=== PATIENT | male | born 1935 | race Caucasian/White ===

== ENCOUNTER 2016-12-08 14:34 | Inpatient (IN) | payer MEDICARE, OTHER ==
--- NOTE | 2016-12-08 14:58 | PCM.HP ---
H&P History of Present Illness - General Date of Service: 12/08/16 Admit Problem/Dx: PNA Source of Information: Patient, Old records, Provider, RN notes reviewed History Limitations: Reports: No limitations - History of Present Illness Initial Comments - Free Text/Narative: This is an 81 yo elderly white male with past medical hx/p RAD and Hypogammaglobulinemia who comes in as a direct admit. He was seen initially from his PCP's clinic and was found to have left lower lobe pneumonia. Patient is known to me from previous admission with significant past medical hx/ o. He has a hx/o Reactive Airway Disease and has been admitted in the past for recurrent pneumonia. Patient reports worsening shortness of breath associated with brownish productive cough. He also admits to having subjective fever. He denies any joint or muscle aches. He is able to drink o r eat. He denies any chest pain, nausea or vomiting. Patient was referred to me as direct admit from Dr. Pérez's office. He is full code. - Related Data Allergies/Adverse Reactions: Allergies Allergy/AdvReac Type Severity Reaction Status Date / Time No Known Allergies Allergy Verified 10/14/15 15:00 Home Medications: Home Meds Tamsulosin [Flomax] 0.4 mg PO DAILY 11/18/13 [History] Apixaban [Eliquis] 5 mg PO BID 09/13/16 [History] Calcium/Magnesium/Zinc [Calcium & Magnesium plus Zinc] 1 tab PO DAILY 09/13/16 [ History] Docusate Sodium [Stool Softener] 750 mg PO BEDTIME 09/13/16 [History] Furosemide [Lasix] 20 mg PO DAILY 09/13/16 [History] Iron. 65 mg PO DAILY 09/13/16 [History] Losartan [Cozaar] 25 mg PO DAILY 09/13/16 [History] Pyridoxine HCl [Vitamin B-6] 100 mg PO DAILY 09/13/16 [History] Sertraline [Zoloft] 25 mg PO DAILY 09/13/16 [History] Past Medical History HEENT History: Reports: Hard of hearing, Impaired vision Cardiovascular History: Reports: High cholesterol, Hypertension, Pacemaker Other Cardiovascular History: superficial Respiratory History: Reports: Pneumonia, recurrent Other Respiratory History: reactive airway disease Other Gastrointestinal History: L inguinal hernia repair Genitourinary History: Reports: BPH Other Genitourinary History: BPH Other OB/BYN History: gynocomastia Musculoskeletal History: Reports: Arthritis Other Musculoskeletal History: Left hip Hematologic History: Reports: Blood transfusion(s) Other Hematologic History: hx of one transfusion Immunologic History: Reports: Immunosuppression Oncologic (Cancer) History: Reports: Leukemia Other Oncologic History: CLL spe 6 months of bedamustine about 3 months ago Other Dermatologic History: left infiltration from chemo drug - Infectious Disease History Infectious Disease History: Reports: Influenza - Past Surgical History Other HEENT Surgeries/Procedures: glasses and bilat TIMMONS Other Neurological Surgeries/Procedures: pt had 2-3 back surgery Other Musculoskeletal Surgeries/Procedures:: back surgery x 2, carpal tunnel Social & Family History - Family History Family Medical History: Noncontributory OBGYN: Reports: Musculoskeletal: Reports: Arthritis Psychiatric: Reports: Other (see below) Other Psychiatric Family History: Alzheimers Endocrine/Metabolic: Reports: Diabetes, type II - Tobacco Use Smoking Status *Q: Never Smoker Second Hand Smoke Exposure: No - Caffeine Use Caffeine Use: Reports: Coffee, Soda - Alcohol Use Days Per Week of Alcohol Use: 0 Number of Drinks Per Day: 0 Total Drinks Per Week: 0 - Recreational Drug Use Recreational Drug Use: No Drug Use in Last 12 Months: No - Living Situation & Occupation Living situation: Reports: other Occupation: retired H&P Review of Systems - Review of Systems: Review Of Systems: See Below General: Reports: fever, chills, malaise HEENT: Reports: no symptoms Pulmonary: Reports: Shortness of Breath, Cough, Sputum Cardiovascular: Denies: chest pain, palpitations, dyspnea on exertion Gastrointestinal: Denies: Abdominal pain, Nausea, Vomiting Genitourinary: Reports: no symptoms Musculoskeletal: Reports: no symptoms Skin: Denies: rash Psychiatric: Denies: depression, anxiety, hallucinations Neurological: Denies: Confusion, Difficulty Walking, Weakness Hematologic/Lymphatic: Reports: no symptoms Immunologic: Reports: no symptoms Exam - Exam Exam: See Below - Vital Signs Weight: 78.3 kg - Exam General: alert, oriented, cooperative, mild distress HEENT: Conjunctiva clear, EOMI, Hearing intact, Mucosa moist & pink, Nares patent, Normal nasal septum, Posterior pharynx clear, Pupils equal, Pupils reactive Neck: supple, trachea midline, 2+ carotid pulse wo bruit Lungs: Normal respiratory effort, Decreased breath sounds, Rhonchi Cardiovascular: regular rate, regular rhythm Abdomen: normal bowel sounds, soft. No: organomegaly (Male) Exam: Deferred Rectal (Males) Exam: Deferred Back Exam: normal inspection, decreased range of motion Extremities: normal inspection, normal pulses. No: clubbing, cyanosis, calf tenderness, edema Peripheral Pulses: 2+: posterior tibial (L), posterior tibial (R), dorsalis pedis (L), dorsalis pedis (R) Skin: warm, dry, intact Neuro Extensive - Mental Status: oriented x3, normal cognition, memory intact Neuro Extensive - Motor, Sensory, Reflexes: CN II-XII intact, normal gait Psychiatric: alert, normal affect, normal mood *Q Meaningful Use (ADM) - VTE *Q VTE Criteria *Q: - Stroke *Q Stroke Criteria *Q: - AMI *Q AMI Criteria *Q: Problem List Initiated/Reviewed/Updated: Yes Assessment/Plan Comment:: Assessment/Plan: Acute: PNA-LLL - Info obtained form PCP - No disc or imaging study available for review - Risk Factor: RAD and Immmuno-suppressed state - PSI score 132: Moderate Risk inpatient admission - Bronchodilators, IV Antibiotics: Azithromycin, Rocephin, Zosyn for pharmacy to dose, RT care, - Decongestant with Mucinex - Sputum Cx/Sx, Legionella, Mycoplasma, and Strep Ag - FV and IS q2 awake Leukoctycosis - 2/2 Above - WBC 11.2 with Bands 8.3 - Monitor Chronic: HTN HLD PAF on Eliquis BPH OA/DJD RAD Anemia CKD Stage 3 Depression Hypothyroidism Hx/o SSS S/p PPM CLL on Chemotherapy Hx/o ESWL for renal stones H/xo DVT Hypogammaglobulinemia Plan: Direct Admit to Med-Surge w/ Tele Routine AM Labs Resume Home Meds Probiotic BID Regular Diet PT/OT consult SW/CM for d./c planning Code status: 1
[2016-12-08] MEDS ORDERED: Docusate Sodium 100 MG Cap PO PRN (15:46)
[2016-12-08] MEDS ORDERED: Sodium Chloride 0.9% 10 ML Syringe FLUSH PRN (15:46)
[2016-12-08] MEDS ORDERED: Albuterol/Ipratropium 3.0-0.5 MG/3 ML Neb Soln NEB PRN (15:46)
[2016-12-08] MEDS ORDERED: Acetaminophen/HYDROcodone 325-5 MG Tab PO PRN (15:46)
[2016-12-08] MEDS ORDERED: Ondansetron 4 MG/2 ML SDV IV PRN (15:46)
[2016-12-08] MEDS ORDERED: HYDROmorphone 0.5 MG/0.5 ML Syringe IVPUSH PRN (15:46)
[2016-12-08] MEDS ORDERED: Bisacodyl 5 MG Tab PO PRN (15:46)
[2016-12-08] MEDS ORDERED: Polyethylene Glycol 3350 Powder 17 GM Packet PO PRN (15:46)
[2016-12-08] MEDS ORDERED: LORazepam 2 MG/ML MDV IV PRN (15:46)
[2016-12-08] MEDS ORDERED: Piperacillin/Tazobactam 4.5 GM in Sodium Chloride 0.9% 100 ML IV SCH (16:00)
[2016-12-08] MEDS ORDERED: Albuterol 6.7 GM Inhaler INH PRN (16:34)
[2016-12-08] MEDS ORDERED: cefTRIAXone 1 GM in Sodium Chloride 0.9% 100 ML IV SCH (17:00)
[2016-12-08] MEDS: Azithromycin 500 MG in Sodium Chloride 0.9% 250 ML IV SCH (18:03)
[2016-12-08] MEDS: Levothyroxine 50 MCG Tab PO SCH (18:06)
[2016-12-08] MEDS: Albuterol/Ipratropium 3.0-0.5 MG/3 ML Neb Soln INH SCH (20:27)
[2016-12-08] MEDS ORDERED: Albuterol 0.5% 2.5 MG/0.5 ML Neb Soln NEB PRN (20:48)
[2016-12-08] MEDS ORDERED: Temazepam 7.5 MG Cap PO PRN (21:00)
[2016-12-08] MEDS: Docusate Sodium 100 MG Cap PO SCH (21:31)
[2016-12-08] MEDS: guaiFENesin 600 MG Tab.ER PO SCH (21:31)
[2016-12-08] MEDS: Saccharomyces Boulardii (Probiotic) 250 MG Cap PO SCH (21:31)
[2016-12-08] MEDS: Apixaban 5 MG Tab PO SCH (21:32)
[2016-12-08] MEDS ORDERED: Albuterol 0.083% 2.5 MG/3 ML Neb Soln INH SCH (22:00)
[2016-12-09] MEDS: Levothyroxine 50 MCG Tab PO SCH (05:54)
--- NOTE | 2016-12-09 08:23 | PCM.PN ---
- General Info Date of Service: 12/09/16 Admission Dx/Problem (Free Text): PNA Subjective Update: Follow Up Functional Status: Reports: pain controlled, tolerating diet, ambulating, urinating. Denies: new symptoms - Review of Systems General: Denies: Fever, Weakness, Fatigue, Malaise, Chills HEENT: Reports: no symptoms Pulmonary: Reports: cough, sputum, wheezing. Denies: shortness of breath Cardiovascular: Denies: Chest Pain, Edema Gastrointestinal: Denies: Abdominal pain, Nausea, Vomiting Genitourinary: Reports: no symptoms Musculoskeletal: Reports: no symptoms Skin: Denies: rash Neurological: Denies: Dizziness, Difficulty Walking, Weakness Psychiatric: Denies: depression, anxiety, agitation, hallucinations Systems Review Comment:: No overnight issues. He feels a little better. He is coughing up more than usual. No new complaints. He remains afebrile w/o leukocytosis. His CRP is 14.8. - Patient Data Vitals - most recent: Last Vital Signs Temp 37.1 C 12/09/16 08:12 Pulse 63 12/09/16 08:12 Resp 15 12/09/16 08:12 BP 144/70 H 12/09/16 08:12 Pulse Ox 96 12/09/16 08:12 Weight - most recent: 75.523 kg I&O - last 24 hours: Intake & Output 12/08/16 12/09/16 12/09/16 22:59 06:59 14:59 Intake Total 350 Output Total 850 Balance -500 Lab Results last 24 hrs: Laboratory Results - last 24 hr 12/08/16 12/09/16 12/09/16 Range/Units 16:24 05:57 05:57 WBC 8.95 (4.23-9.07) K/mm3 RBC 3.58 L (4.63-6.08) M/mm3 Hgb 10.6 L (13.7-17.5) gm/L Hct 32.6 L (40.1-51.0) % MCV 91.1 (79.0-92.2) fl MCH 29.6 (25.7-32.2) pg MCHC 32.5 (32.2-35.5) g/dl RDW Std Deviation 48.8 H (35.1-43.9) fL Plt Count 159 L (163-337) K/mm3 MPV 9.4 (9.4-12.3) fl Neut % (Auto) 72.3 H (34.0-67.9) % Lymph % (Auto) 18.4 L (21.8-53.1) % Hood % (Auto) 6.9 (5.3-12.2) % Eos % (Auto) 1.9 (0.8-7.0) Baso % (Auto) 0.1 (0.1-1.2) % Neut # (Auto) 6.46 H (1.78-5.38) K/mm3 Lymph # (Auto) 1.65 (1.32-3.57) K/mm3 Hood # (Auto) 0.62 (0.30-0.82) K/mm3 Eos # (Auto) 0.17 (0.04-0.54) K/mm3 Baso # (Auto) 0.01 (0.01-0.08) K/mm3 Sodium 138 (136-145) mEq/L Potassium 4.0 (3.5-5.1) mEq/L Chloride 103 (98-107) mEq/L Carbon Dioxide 23 (21-32) mEq/L Anion Gap 16.0 H (5-15) BUN 17 (7-18) mg/dL Creatinine 1.1 (0.7-1.3) mg/dL Est Cr Clr Drug Dosing 39.98 mL/min Estimated GFR (MDRD) > 60 (>60) mL/min BUN/Creatinine Ratio 15.5 (14-18) Glucose 108 (83-115) mg/dL Calcium 8.6 (8.5-10.1) mg/dL Magnesium 2.0 (1.8-2.4) mg/dl C-Reactive Protein 14.8 H* (<1.0) mg/dL Mycoplasma pneumon IgM Negative (NEGATIVE) [place] Results last 24 hrs: Microbiology 12/08/16 17:36 Gram Stain - Final Sputum - Expectorated Sputum Culture - Preliminary 12/08/16 16:24 Anaerobic Blood Culture - Final Blood - Venous - Lab Draw 12/08/16 16:35 Influenza Type A Antigen Screen - Final Nasopharyngeal Swab - Nare, Right NEGATIVE INFLUENZA A VIRUS AG Influenza Type B Antigen Screen - Final NEGATIVE INFLUENZA B VIRUS AG Med Orders - Current: Current Medications Acetaminophen (Tylenol) 650 mg PO Q4H PRN PRN Reason: Pain (Mild 1-3)/fever Hydrocodone Bitart/Acetaminophen ([place] 325-5 Mg) 1 tab PO Q4H PRN PRN Reason: Pain (moderate 4-6) Albuterol (Proventil Hfa) 0 gm INH QID PRN PRN Reason: Wheezing Albuterol (Proventil) 2.5 mg NEB Q4HRRT PRN PRN Reason: wheezing Albuterol/Ipratropium (Duoneb 3.0-0.5 Mg/3 Ml) 3 ml NEB Q4H PRN PRN Reason: Shortness Of Breath/wheezing Albuterol/Ipratropium (Duoneb 3.0-0.5 Mg/3 Ml) 3 ml INH BID [facility] Last Admin: 12/08/16 20:27 Dose: 3 ml Apixaban (Eliquis) 5 mg PO BID [facility] Last Admin: 12/08/16 21:32 Dose: 5 mg Aspirin (Halfprin) 81 mg PO DAILY [facility] Bisacodyl (Dulcolax) 5 mg PO DAILY PRN PRN Reason: Constipation Calcium Carbonate (Calcium Carbonate/Vitamin D 1500 Mg-200 Unit) 600 tab PO DAILY [facility] Docusate Sodium (Colace) 100 mg PO BID PRN PRN Reason: Constipation Docusate Sodium (Colace) 200 mg PO BID [facility] Last Admin: 12/08/16 21:31 Dose: 200 mg Furosemide (Lasix) 20 mg PO DAILY [facility] Guaifenesin (Mucinex) 1,200 mg PO BID [facility] Last Admin: 12/08/16 21:31 Dose: 1,200 mg Hydromorphone HCl (Dilaudid) 0.25 mg IVPUSH Q2H PRN PRN Reason: Pain (severe 7-10) Azithromycin 500 mg/ Sodium (Chloride) 250 mls @ 250 mls/hr IV Q24H [facility] Last Admin: 12/08/16 18:03 Dose: 250 mls/hr Ceftriaxone Sodium 1 gm/ (Sodium Chloride) 100 mls @ 200 mls/hr IV Q24H [facility] Last Admin: 12/08/16 17:58 Dose: 200 mls/hr Levothyroxine Sodium (Synthroid) 50 mcg PO ACBREAKFAST [facility] Last Admin: 12/09/16 05:54 Dose: 50 mcg Lorazepam (Ativan) 0.5 mg IV Q6H PRN PRN Reason: Anxiety Losartan Potassium (Cozaar) 25 mg PO DAILY [facility] Magnesium Oxide (Magnesium Oxide) 400 mg PO DAILY [facility] Ondansetron HCl (Zofran) 4 mg IV Q6H PRN PRN Reason: Nausea/Vomiting Breo Ellipta ( Fluticasone/Vilanterol) Inhaler 0 each INH DAILY [facility] Polyethylene Glycol (Miralax) 17 gm PO DAILY PRN PRN Reason: Constipation Pyridoxine HCl (Vitamin B6-Pyridoxine) 100 mg PO DAILY [facility] Saccharomyces Boulardii (Florastor) 250 mg PO BID [facility] Last Admin: 12/08/16 21:31 Dose: 250 mg Senna/Docusate Sodium (Senna Plus) 1 tab PO BID PRN PRN Reason: Constipation Sertraline HCl (Zoloft) 25 mg PO DAILY [facility] Sodium Chloride (Saline Flush) 10 ml FLUSH ASDIRECTED PRN PRN Reason: Keep Vein Open Tamsulosin HCl (Flomax) 0.4 mg PO DAILY [facility] Temazepam (Restoril) 7.5 mg PO BEDTIME PRN PRN Reason: Sleep Discontinued Medications Albuterol (Proventil Neb Soln) 2.5 mg INH Q4HRRT [facility] Last Admin: 12/09/16 05:52 Dose: 2.5 mg Piperacillin Sod/Tazobactam (Sod 4.5 gm/ Sodium Chloride) 100 mls @ 25 mls/hr IV Q6H [facility] Last Admin: 12/08/16 18:50 Dose: Not Given - Exam Quality Assessment: No: supplemental oxygen General: alert, oriented, cooperative, no acute distress HEENT: Pupils equal, Pupils reactive, EOMI, Mucous membr. moist/pink Neck: supple, trachea midline Lungs: Normal respiratory effort, Decreased breath sounds, Rhonchi, Wheezing Cardiovascular: Irregular Rhythm, Other (cardiac pacer on left upper chest) Abdomen: bowel sounds present, soft, no tenderness, no distension (Male) Exam: Deferred Back Exam: normal inspection, decreased range of motion Extremities: no edema, normal pulses, no tenderness/swelling, no clubbing, no cyanosis, no calf tenderness Peripheral Pulses: 2+: posterior tibial (L), posterior tibial (R), dorsalis pedis (L), dorsalis pedis (R) Skin: warm, dry, intact Neurological: no new focal deficit Psy/Mental Status: alert, normal affect, normal mood - Problem List Review Problem List Initiated/Reviewed/Updated: Yes - My Orders Last 24 Hours: My Active Orders 12/08/16 15:46 Height and Weight [RC] 0400 Up With Assistance [RC] ASDIRECTED Up ad Ariadna [RC] ASDIRECTED Acetaminophen [Tylenol] 650 mg PO Q4H PRN Acetaminophen/HYDROcodone [[place] 325-5 MG] 1 tab PO Q4H PRN Albuterol/Ipratropium [DuoNeb 3.0-0.5 MG/3 ML] 3 ml NEB Q4H PRN Bisacodyl [Dulcolax] 5 mg PO DAILY PRN Docusate Sodium [Colace] 100 mg PO BID PRN Docusate Sodium/Sennosides [Senna Plus] 1 tab PO BID PRN HYDROmorphone [Dilaudid] 0.25 mg IVPUSH Q2H PRN LORazepam [Ativan] 0.5 mg IV Q6H PRN Ondansetron [Zofran] 4 mg IV Q6H PRN Polyethylene Glycol 3350 [MiraLAX] 17 gm PO DAILY PRN Sodium Chloride 0.9% [Saline Flush] 10 ml FLUSH ASDIRECTED PRN Saline Lock Insert [OM.PC] Routine Resuscitation Status Routine 12/08/16 15:47 Oxygen Therapy [RC] PRN VTE/DVT Education [RC] DAILY Vital Signs [RC] Q4HR Blood Culture x2 Reflex Set [OM.PC] Stat 12/08/16 15:48 Intake and Output [RC] 0400,1600 Pulse Oximetry [RC] PRN 12/08/16 15:50 RT Aerosol Therapy [RC] .PRN Consult to Case Management [CONS] Routine Consult to Lingo Cleaner [CONS] Routine Consult to Spiritual Care [CONS] Routine OT Evaluation and Treatment [CONS] Routine PT Evaluation and Treatment [CONS] Routine Respiratory Care Assess and Treatment [CONS] Routine 12/08/16 16:13 Flutter Valve Therapy [RT Chest Physiotherapy] [RC] ASDIRECTED Incentive Spirometry [RT Incentive Spirometry] [RC] ASDIRECTED 12/08/16 16:15 CULTURE BLOOD [BC] Stat 12/08/16 16:24 CULTURE BLOOD [BC] Stat 12/08/16 16:34 Albuterol [Proventil HFA] 0 gm INH QID PRN 12/08/16 16:53 Patient Status [ADT] Routine 12/08/16 17:00 cefTRIAXone [Rocephin] 1 gm Sodium Chloride 0.9% [Normal Saline] 100 ml IV Q24H 12/08/16 17:30 Levothyroxine [Synthroid] 50 mcg PO ACBREAKFAST 12/08/16 17:36 CULTURE SPUTUM + SMEAR [RM] Stat 12/08/16 18:00 Azithromycin [Zithromax] 500 mg Sodium Chloride 0.9% [Normal Saline] 250 ml IV Q24H 12/08/16 20:48 Albuterol [Proventil] 2.5 mg NEB Q4HRRT PRN 12/08/16 21:00 Albuterol/Ipratropium [DuoNeb 3.0-0.5 MG/3 ML] 3 ml INH BID Apixaban [Eliquis] 5 mg PO BID Docusate Sodium [Colace] 200 mg PO BID Saccharomyces Boulardii [Florastor] 250 mg PO BID Temazepam [Restoril] 7.5 mg PO BEDTIME PRN guaiFENesin [Mucinex] 1,200 mg PO BID 12/08/16 Dinner Regular Diet [DIET] 12/09/16 09:00 Aspirin [Halfprin] 81 mg PO DAILY Calcium Carbonate/Vitamin D3 [Calcium Carbonate/Vitamin D 1500 MG-200 Unit] 600 tab PO DAILY Furosemide [Lasix] 20 mg PO DAILY Losartan [Cozaar] 25 mg PO DAILY Magnesium Oxide 400 mg PO DAILY Patient's Own Medication [Ptom] 0 each INH DAILY Sertraline [Zoloft] 25 mg PO DAILY Tamsulosin [Flomax] 0.4 mg PO DAILY Vitamin B6-pyridOXINE 100 mg PO DAILY 12/10/16 05:11 BASIC METABOLIC PANEL,BMP [CHEM] AM C-REACTIVE PROTEIN [CHEM] AM CBC WITH AUTO DIFF [HEME] AM MAGNESIUM [CHEM] AM 12/11/16 05:11 BASIC METABOLIC PANEL,BMP [CHEM] AM C-REACTIVE PROTEIN [CHEM] AM CBC WITH AUTO DIFF [HEME] AM MAGNESIUM [CHEM] AM 12/12/16 05:11 BASIC METABOLIC PANEL,BMP [CHEM] AM C-REACTIVE PROTEIN [CHEM] AM CBC WITH AUTO DIFF [HEME] AM MAGNESIUM [CHEM] AM - Plan Plan:: Assessment/Plan: Acute: PNA-LLL - Info obtained from PCP - No disc or imaging study available for review - Risk Factor: RAD and Immmuno-suppressed state - PSI score 132: Moderate Risk inpatient admission - Bronchodilators, IV Antibiotics: Azithromycin/Zosyn for pharmacy to dose, RT care - Decongestant with Mucinex - Sputum Cx/Sx pending - Legionella and Strep Ag pending - Mycoplasma negative - Encourage to uses FV and IS q2 awake as directed Resolved: S/p Leukoctycosis - 2/2 Above - WBC is now back to normal - WBC 11.2 with Bands 8.3 - Monitor Chronic: HTN HLD PAF on Eliquis BPH OA/DJD RAD Anemia CKD Stage 3 Depression Hypothyroidism Hx/o SSS S/p PPM CLL on Chemotherapy Hx/o ESWL for renal stones H/xo DVT Hypogammaglobulinemia Plan: He is clinically stable Continue current treatment Routine AM Labs Continue PT/OT CXR follow up in am Encourage to ambulate as tolerated SW/CM for d/c planning Code status: 1
[2016-12-09] MEDS: Aspirin 81 MG Tab.EC PO SCH (08:25)
[2016-12-09] MEDS: Sertraline 25 MG Tab PO SCH (08:25)
[2016-12-09] MEDS: Saccharomyces Boulardii (Probiotic) 250 MG Cap PO SCH ×2 (08:25→21:47)
[2016-12-09] MEDS: Furosemide 20 MG Tab PO SCH (08:25)
[2016-12-09] MEDS: Vitamin B6-pyridOXINE 50 MG Tab PO SCH (08:25)
[2016-12-09] MEDS: Losartan 25 MG Tab PO SCH (08:25)
[2016-12-09] MEDS: Apixaban 5 MG Tab PO SCH ×2 (08:26→21:47)
[2016-12-09] MEDS: Docusate Sodium 100 MG Cap PO SCH ×2 (08:26→21:47)
[2016-12-09] MEDS: Tamsulosin 0.4 MG Cap.ER PO SCH (08:26)
[2016-12-09] MEDS: Magnesium Oxide 400 MG Tab PO SCH (08:26)
[2016-12-09] MEDS: guaiFENesin 600 MG Tab.ER PO SCH ×2 (08:26→21:47)
[2016-12-09] MEDS: Calcium Carbonate/Vitamin D3 1500 MG-200 Units Tab PO SCH (08:26)
[2016-12-09] MEDS: Albuterol/Ipratropium 3.0-0.5 MG/3 ML Neb Soln INH SCH ×2 (08:35→20:50)
[2016-12-09] MEDS: BREO ELLIPTA INH SCH (08:36)
[2016-12-09] MEDS: Cefepime 2 GM in Premix Bag 1 BAG IV SCH (12:58)
[2016-12-09] MEDS: Azithromycin 500 MG in Sodium Chloride 0.9% 250 ML IV SCH (17:32)
[2016-12-10] MEDS: Cefepime 2 GM in Premix Bag 1 BAG IV SCH ×2 (01:14→12:07)
[2016-12-10] MEDS: Levothyroxine 50 MCG Tab PO SCH (05:57)
[2016-12-10] MEDS: Tamsulosin 0.4 MG Cap.ER PO SCH (08:15)
[2016-12-10] MEDS: guaiFENesin 600 MG Tab.ER PO SCH ×2 (08:15→20:10)
[2016-12-10] MEDS: Losartan 25 MG Tab PO SCH (08:15)
[2016-12-10] MEDS: Saccharomyces Boulardii (Probiotic) 250 MG Cap PO SCH ×2 (08:16→20:10)
[2016-12-10] MEDS: Calcium Carbonate/Vitamin D3 1500 MG-200 Units Tab PO SCH ×2 (08:16→09:03)
[2016-12-10] MEDS: Vitamin B6-pyridOXINE 50 MG Tab PO SCH (08:16)
[2016-12-10] MEDS: Magnesium Oxide 400 MG Tab PO SCH (08:16)
[2016-12-10] MEDS: Sertraline 25 MG Tab PO SCH (08:16)
[2016-12-10] MEDS: Docusate Sodium 100 MG Cap PO SCH ×2 (08:16→20:11)
[2016-12-10] MEDS: Apixaban 5 MG Tab PO SCH ×2 (08:16→20:10)
[2016-12-10] MEDS: Furosemide 20 MG Tab PO SCH (08:17)
[2016-12-10] MEDS: Aspirin 81 MG Tab.EC PO SCH (08:17)
[2016-12-10] MEDS: Albuterol/Ipratropium 3.0-0.5 MG/3 ML Neb Soln INH SCH ×2 (08:48→21:04)
[2016-12-10] MEDS: BREO ELLIPTA INH SCH (08:48)
--- NOTE | 2016-12-10 11:13 | CR ---
Chest: Two views of the chest were obtained. Comparison: Previous chest x-ray of 10/07/16. Slightly increasing size of the aortic knob is seen from prior exam. Heart size is normal. Right-sided infusion catheter is seen. Pacemaker is noted. Minimal atelectasis within the left base is seen. Lungs otherwise are clear. Chronic rotator cuff tears appear to be present within both shoulders. Degenerative change is scattered within the thoracic spine. Mild scoliosis is noted. Impression: 1. Increasing size of the aortic knob from prior study most likely representing slight differences in positioning. Noncontrast chest CT could be obtained to confirm that this finding does not represent an aneurysm. 2. Other incidental findings as noted above. No pneumonia is identified at this time. Diagnostic code #3
--- NOTE | 2016-12-10 12:13 | PCM.PN ---
- General Info Date of Service: 12/10/16 Admission Dx/Problem (Free Text): PNA Ed is seen this morning, slept well last night. Has a good appetite. He feels SOB and continues to cough, course cough which is now productive. He remains on RA with good sats >92%. VSS, afebrile. Continues on Zithromax and Cefepime for IV abx. Functional Status: Reports: pain controlled, tolerating diet, ambulating, urinating, new symptoms - Review of Systems General: Reports: No Symptoms HEENT: Reports: no symptoms Pulmonary: Reports: shortness of breath (improving), cough (productive- improving) Cardiovascular: Reports: No Symptoms. Denies: Chest Pain, Palpitations, Orthopnea Gastrointestinal: Reports: No symptoms Genitourinary: Reports: no symptoms Musculoskeletal: Reports: no symptoms Skin: Reports: no symptoms Neurological: Reports: No Symptoms Psychiatric: Reports: no symptoms - Patient Data Vitals - most recent: Last Vital Signs Temp 98.4 F 12/10/16 07:46 Pulse 67 12/10/16 07:46 Resp 28 H 12/10/16 07:46 BP 133/79 12/10/16 08:15 Pulse Ox 94 L 12/10/16 08:48 Weight - most recent: 167 lb 11.2 oz I&O - last 24 hours: Intake & Output 12/09/16 12/10/16 12/10/16 22:59 06:59 14:59 Intake Total 1025 375 120 Output Total 1150 1575 Balance -125 -1200 120 Lab Results last 24 hrs: Laboratory Results - last 24 hr 12/10/16 12/10/16 Range/Units 05:44 05:44 WBC 7.73 (4.23-9.07) K/mm3 RBC 3.38 L (4.63-6.08) M/mm3 Hgb 10.0 L (13.7-17.5) gm/L Hct 31.2 L (40.1-51.0) % MCV 92.3 H (79.0-92.2) fl MCH 29.6 (25.7-32.2) pg MCHC 32.1 L (32.2-35.5) g/dl RDW Std Deviation 48.6 H (35.1-43.9) fL Plt Count 151 L (163-337) K/mm3 MPV 9.4 (9.4-12.3) fl Neut % (Auto) 70.6 H (34.0-67.9) % Lymph % (Auto) 18.5 L (21.8-53.1) % Mineral % (Auto) 7.5 (5.3-12.2) % Eos % (Auto) 2.3 (0.8-7.0) Baso % (Auto) 0.3 (0.1-1.2) % Neut # (Auto) 5.46 H (1.78-5.38) K/mm3 Lymph # (Auto) 1.43 (1.32-3.57) K/mm3 Mineral # (Auto) 0.58 (0.30-0.82) K/mm3 Eos # (Auto) 0.18 (0.04-0.54) K/mm3 Baso # (Auto) 0.02 (0.01-0.08) K/mm3 Sodium 137 (136-145) mEq/L Potassium 4.2 (3.5-5.1) mEq/L Chloride 102 (98-107) mEq/L Carbon Dioxide 25 (21-32) mEq/L Anion Gap 14.2 (5-15) BUN 18 (7-18) mg/dL Creatinine 1.1 (0.7-1.3) mg/dL Est Cr Clr Drug Dosing 39.98 mL/min Estimated GFR (MDRD) > 60 (>60) mL/min BUN/Creatinine Ratio 16.4 (14-18) Glucose 122 H (83-115) mg/dL Calcium 8.8 (8.5-10.1) mg/dL Magnesium 2.0 (1.8-2.4) mg/dl C-Reactive Protein 11.4 H* (<1.0) mg/dL [place] Results last 24 hrs: Microbiology 12/08/16 06:03 Legionella Urinary Antigen - Final Urine 12/08/16 06:03 Streptococcus pneumoniae Antigen (M - Final Urine - Clean Catch Midstream 12/08/16 16:24 Aerobic Blood Culture - Preliminary Blood - Venous - Lab Draw NO GROWTH AFTER 1 DAY Anaerobic Blood Culture - Final 12/08/16 16:15 Aerobic Blood Culture - Preliminary Blood - Venous NO GROWTH AFTER 1 DAY Anaerobic Blood Culture - Preliminary NO GROWTH AFTER 1 DAY 12/08/16 17:36 Gram Stain - Final Sputum - Expectorated Sputum Culture - Preliminary Med Orders - Current: Current Medications Acetaminophen (Tylenol) 650 mg PO Q4H PRN PRN Reason: Pain (Mild 1-3)/fever Hydrocodone Bitart/Acetaminophen ([place] 325-5 Mg) 1 tab PO Q4H PRN PRN Reason: Pain (moderate 4-6) Albuterol (Proventil Hfa) 0 gm INH QID PRN PRN Reason: Wheezing Albuterol (Proventil) 2.5 mg NEB Q4HRRT PRN PRN Reason: wheezing Albuterol/Ipratropium (Duoneb 3.0-0.5 Mg/3 Ml) 3 ml NEB Q4H PRN PRN Reason: Shortness Of Breath/wheezing Albuterol/Ipratropium (Duoneb 3.0-0.5 Mg/3 Ml) 3 ml INH BID [facility] Last Admin: 12/10/16 08:48 Dose: 3 ml Apixaban (Eliquis) 5 mg PO BID [facility] Last Admin: 12/10/16 08:16 Dose: 5 mg Aspirin (Halfprin) 81 mg PO DAILY [facility] Last Admin: 12/10/16 08:17 Dose: 81 mg Bisacodyl (Dulcolax) 5 mg PO DAILY PRN PRN Reason: Constipation Calcium Carbonate (Calcium Carbonate/Vitamin D 1500 Mg-200 Unit) 1 tab PO DAILY [facility] Last Admin: 12/10/16 09:03 Dose: Not Given Docusate Sodium (Colace) 100 mg PO BID PRN PRN Reason: Constipation Docusate Sodium (Colace) 200 mg PO BID [facility] Last Admin: 12/10/16 08:16 Dose: 200 mg Furosemide (Lasix) 20 mg PO DAILY [facility] Last Admin: 12/10/16 08:17 Dose: 20 mg Guaifenesin (Mucinex) 1,200 mg PO BID [facility] Last Admin: 12/10/16 08:15 Dose: 1,200 mg Hydromorphone HCl (Dilaudid) 0.25 mg IVPUSH Q2H PRN PRN Reason: Pain (severe 7-10) Azithromycin 500 mg/ Sodium (Chloride) 250 mls @ 250 mls/hr IV Q24H [facility] Last Admin: 12/09/16 17:32 Dose: 250 mls/hr Cefepime HCl 2 gm/ Premix 50 mls @ 100 mls/hr IV Q12H [facility] Last Admin: 12/10/16 01:14 Dose: 100 mls/hr Levothyroxine Sodium (Synthroid) 50 mcg PO ACBREAKFAST [facility] Last Admin: 12/10/16 05:57 Dose: 50 mcg Lorazepam (Ativan) 0.5 mg IV Q6H PRN PRN Reason: Anxiety Losartan Potassium (Cozaar) 25 mg PO DAILY [facility] Last Admin: 12/10/16 08:15 Dose: 25 mg Magnesium Oxide (Magnesium Oxide) 400 mg PO DAILY [facility] Last Admin: 12/10/16 08:16 Dose: 400 mg Ondansetron HCl (Zofran) 4 mg IV Q6H PRN PRN Reason: Nausea/Vomiting Breo Ellipta ( Fluticasone/Vilanterol) Inhaler 0 each INH DAILY [facility] Last Admin: 12/10/16 08:48 Dose: 1 each Polyethylene Glycol (Miralax) 17 gm PO DAILY PRN PRN Reason: Constipation Last Admin: 12/09/16 09:06 Dose: 17 gm Pyridoxine HCl (Vitamin B6-Pyridoxine) 100 mg PO DAILY [facility] Last Admin: 12/10/16 08:16 Dose: 100 mg Saccharomyces Boulardii (Florastor) 250 mg PO BID [facility] Last Admin: 12/10/16 08:16 Dose: 250 mg Senna/Docusate Sodium (Senna Plus) 1 tab PO BID PRN PRN Reason: Constipation Sertraline HCl (Zoloft) 25 mg PO DAILY [facility] Last Admin: 12/10/16 08:16 Dose: 25 mg Sodium Chloride (Saline Flush) 10 ml FLUSH ASDIRECTED PRN PRN Reason: Keep Vein Open Tamsulosin HCl (Flomax) 0.4 mg PO DAILY [facility] Last Admin: 12/10/16 08:15 Dose: 0.4 mg Temazepam (Restoril) 7.5 mg PO BEDTIME PRN PRN Reason: Sleep Discontinued Medications Albuterol (Proventil Neb Soln) 2.5 mg INH Q4HRRT [facility] Last Admin: 12/09/16 05:52 Dose: 2.5 mg Calcium Carbonate (Calcium Carbonate/Vitamin D 1500 Mg-200 Unit) 600 tab PO DAILY [facility] Last Admin: 12/10/16 08:16 Dose: 1 tab Piperacillin Sod/Tazobactam (Sod 4.5 gm/ Sodium Chloride) 100 mls @ 25 mls/hr IV Q6H [facility] Last Admin: 12/08/16 18:50 Dose: Not Given Ceftriaxone Sodium 1 gm/ (Sodium Chloride) 100 mls @ 200 mls/hr IV Q24H [facility] Last Admin: 12/08/16 17:58 Dose: 200 mls/hr - Exam Quality Assessment: DVT prophylaxis General: alert, oriented, cooperative, no acute distress HEENT: Pupils equal, Pupils reactive, EOMI, Mucous membr. moist/pink Neck: supple Lungs: Decreased breath sounds, Rhonchi, Wheezing Cardiovascular: Regular Rate, Regular Rhythm Abdomen: bowel sounds present, soft, no tenderness, no distension (Male) Exam: Deferred Back Exam: normal inspection Extremities: no edema, no calf tenderness Peripheral Pulses: 1+: dorsalis pedis (L), dorsalis pedis (R) Skin: warm, dry Neurological: no new focal deficit Psy/Mental Status: alert, normal affect, normal mood - Problem List & Annotations (1) Pneumonia SNOMED Code(s): 995735968 Code(s): J18.9 - PNEUMONIA, UNSPECIFIED ORGANISM Status: Acute Priority: High Current Visit: Yes Qualifiers: Pneumonia type: due to unspecified organism Laterality: left Lung location: lower lobe of lung Qualified Code(s): J18.1 - Lobar pneumonia, unspecified organism (2) Anemia SNOMED Code(s): 402096669 Code(s): D64.9 - ANEMIA, UNSPECIFIED Status: Chronic Priority: Medium Current Visit: Yes (3) Afib SNOMED Code(s): 97454768 Code(s): I48.91 - UNSPECIFIED ATRIAL FIBRILLATION Status: Chronic Priority: Medium Current Visit: Yes Qualifiers: Atrial fibrillation type: chronic Qualified Code(s): I48.2 - Chronic atrial fibrillation (4) CLL (chronic lymphocytic leukemia) SNOMED Code(s): 24618294 Code(s): C91.10 - CHRONIC LYMPHOCYTIC LEUK OF B-CELL TYPE NOT ACHIEVE REMIS Status: Chronic Priority: Medium Current Visit: No - Problem List Review Problem List Initiated/Reviewed/Updated: Yes - My Orders Last 24 Hours: My Active Orders 12/10/16 06:49 Ambulate [RC] Q6HR 12/10/16 12:06 Chest wo Cont [CT] Routine - Plan Plan:: Assessment/Plan: Acute: PNA-LLL - Info obtained from PCP - No disc or imaging study available for review for baseline CXR - Risk Factor: RAD and Immmuno-suppressed state - PSI score 132: Moderate Risk inpatient admission - Bronchodilators, IV Antibiotics: Azithromycin/Cefepime, RT care - Decongestant with Mucinex - Sputum Cx/Sx pending--initial sputum from [place] with report today of gram + cocci - Legionella and Strep Ag- negative - Mycoplasma negative - BC negative thus far - Encourage to uses FV and IS q2 awake as directed - Repeat CXR this am shows aortic knob is increasing in size from prior exam , could represent aneurym, noncontrast CT can be obtained to further evaluate. Minimal atelectasis to lt lung base otherwise. Will obtain chest CT without contrast for further eval. Discussed this with patient and daughter, Karol. Resolved: S/p Leukoctycosis - 2/2 Above - WBC is now back to normal- improved and stable - Cont to Monitor Chronic: HTN HLD PAF on Eliquis BPH OA/DJD RAD Anemia CKD Stage 3 Depression Hypothyroidism Hx/o SSS S/p PPM CLL on Chemotherapy Hx/o ESWL for renal stones H/xo DVT Hypogammaglobulinemia Plan: He is clinically stable Continue current treatment Routine AM Labs Continue PT/OT CXR follow up in am Encourage to ambulate as tolerated SW/CM for d/c planning-- likely 1-2 more days then plan for dc home. Code status: 1
--- NOTE | 2016-12-10 13:37 | CT ---
CT chest Technique: Multiple axial sections through the chest were obtained. Intravenous contrast not utilized. Comparison: Previous chest x-ray performed earlier on the same day (8:32 AM). Aorta shows atherosclerotic change. Mild aneurysmal dilatation of the ascending aorta is seen at 3.8 cm. The descending aorta at this level is also slightly prominent at 3.3 cm. This is likely chronic given its appearance. Multiple mediastinal lymph nodes are seen which are likely relating to old inflammatory process. Extensive coronary artery calcification is seen. Small portion of the visualized upper abdominal structures show a small hyperdense cyst within the left kidney measuring 1.1 cm most likely representing a small hemorrhagic cyst. Small low density cyst also seen within the left kidney measuring 1.1 cm. Calcified gallstones are seen within the gallbladder. Patchy increased density within the left base is seen possibly due to early area of pneumonia. Minimal density noted within the lingula and right middle lobe as well as patchy density within the right upper lobe possibly due to additional areas of pneumonia. Scattered degenerative spurring noted within the spine. Degenerative change also noted within the right shoulder. Impression: 1. Mild aneurysmal dilatation of the ascending aorta as well as mild ectasia of the descending aorta. Findings are likely chronic. 2. Patchy areas of increased density within the right upper lung and right middle lobe as well as left lower lung. Findings presumably due to multiple areas of early pneumonia. 3. Slightly prominent lymph nodes most likely representing old inflammatory process. Diagnostic code #3
[2016-12-10] MEDS: Azithromycin 500 MG in Sodium Chloride 0.9% 250 ML IV SCH (17:56)
[2016-12-11] MEDS: Cefepime 2 GM in Premix Bag 1 BAG IV SCH ×2 (00:06→12:30)
[2016-12-11] MEDS: Ferrous Sulfate 325 MG Tab PO SCH ×2 (06:17→17:20)
[2016-12-11] MEDS: Ascorbic Acid 500 MG Tab PO SCH ×2 (06:17→17:20)
[2016-12-11] MEDS: Levothyroxine 50 MCG Tab PO SCH (06:18)
[2016-12-11] MEDS: Albuterol/Ipratropium 3.0-0.5 MG/3 ML Neb Soln INH SCH ×2 (08:15→20:59)
[2016-12-11] MEDS: BREO ELLIPTA INH SCH (08:15)
[2016-12-11] MEDS: Saccharomyces Boulardii (Probiotic) 250 MG Cap PO SCH ×2 (08:28→20:53)
[2016-12-11] MEDS: Vitamin B6-pyridOXINE 50 MG Tab PO SCH (08:28)
[2016-12-11] MEDS: Magnesium Oxide 400 MG Tab PO SCH (08:28)
[2016-12-11] MEDS: Apixaban 5 MG Tab PO SCH ×2 (08:28→20:53)
[2016-12-11] MEDS: Docusate Sodium 100 MG Cap PO SCH ×2 (08:28→20:53)
[2016-12-11] MEDS: Sertraline 25 MG Tab PO SCH (08:28)
[2016-12-11] MEDS: guaiFENesin 600 MG Tab.ER PO SCH ×2 (08:29→20:54)
[2016-12-11] MEDS: Tamsulosin 0.4 MG Cap.ER PO SCH ×2 (08:29→17:21)
[2016-12-11] MEDS: Calcium Carbonate/Vitamin D3 1500 MG-200 Units Tab PO SCH (08:29)
[2016-12-11] MEDS: Aspirin 81 MG Tab.EC PO SCH (08:29)
[2016-12-11] MEDS: Furosemide 20 MG Tab PO SCH (08:29)
[2016-12-11] MEDS: Losartan 25 MG Tab PO SCH (08:29)
--- NOTE | 2016-12-11 10:37 | PCM.PN ---
- General Info Date of Service: 12/11/16 Admission Dx/Problem (Free Text): PNA Ed is seen this morning, slept well last night. Has a good appetite. He feels SOB and continues to cough, course cough which is now productive, thick whitish and somtimes. He remains on RA with good sats >92%. VSS, afebrile. Continues on Zithromax and Cefepime for IV abx. PT was in with him this morning- states he is very weak; patient states energy is "pretty good", "just short of breath". Functional Status: Reports: pain controlled, tolerating diet, ambulating, urinating. Denies: new symptoms - Review of Systems General: Reports: No Symptoms, Weakness. Denies: Fever HEENT: Reports: no symptoms Pulmonary: Reports: shortness of breath, cough, sputum. Denies: pleuritic chest pain, hemoptysis Cardiovascular: Reports: No Symptoms, Dyspnea on Exertion (chronic ). Denies: Chest Pain, Palpitations Gastrointestinal: Reports: No symptoms Genitourinary: Reports: no symptoms Musculoskeletal: Reports: no symptoms Skin: Reports: no symptoms Neurological: Reports: No Symptoms Psychiatric: Reports: no symptoms - Patient Data Vitals - most recent: Last Vital Signs Temp 97.5 F 12/11/16 08:11 Pulse 60 12/11/16 08:11 Resp 14 12/11/16 08:11 BP 132/75 12/11/16 08:29 Pulse Ox 95 12/11/16 08:15 Weight - most recent: 165 lb I&O - last 24 hours: Intake & Output 12/10/16 12/11/16 12/11/16 22:59 06:59 14:59 Intake Total 1610 150 Output Total 2350 1800 Balance -740 -1650 Lab Results last 24 hrs: Laboratory Results - last 24 hr 12/10/16 12/11/16 12/11/16 Range/Units 05:44 05:10 06:00 WBC 7.34 (4.23-9.07) K/mm3 RBC 3.81 L (4.63-6.08) M/mm3 Hgb 11.3 L (13.7-17.5) gm/L Hct 34.5 L (40.1-51.0) % MCV 90.6 (79.0-92.2) fl MCH 29.7 (25.7-32.2) pg MCHC 32.8 (32.2-35.5) g/dl RDW Std Deviation 48.1 H (35.1-43.9) fL Plt Count 188 (163-337) K/mm3 MPV 9.4 (9.4-12.3) fl Neut % (Auto) 65.1 (34.0-67.9) % Lymph % (Auto) 21.7 L (21.8-53.1) % [place] % (Auto) 7.8 (5.3-12.2) % Eos % (Auto) 3.4 (0.8-7.0) Baso % (Auto) 0.4 (0.1-1.2) % Neut # (Auto) 4.78 (1.78-5.38) K/mm3 Lymph # (Auto) 1.59 (1.32-3.57) K/mm3 [place] # (Auto) 0.57 (0.30-0.82) K/mm3 Eos # (Auto) 0.25 (0.04-0.54) K/mm3 Baso # (Auto) 0.03 (0.01-0.08) K/mm3 Manual Slide Review Normal smear Sodium 137 (136-145) mEq/L Potassium 4.4 (3.5-5.1) mEq/L Chloride 101 (98-107) mEq/L Carbon Dioxide 26 (21-32) mEq/L Anion Gap 14.4 (5-15) BUN 19 H (7-18) mg/dL Creatinine 1.1 (0.7-1.3) mg/dL Est Cr Clr Drug Dosing 39.98 mL/min Estimated GFR (MDRD) > 60 (>60) mL/min BUN/Creatinine Ratio 17.3 (14-18) Glucose 111 (83-115) mg/dL Calcium 9.1 (8.5-10.1) mg/dL Magnesium 2.1 (1.8-2.4) mg/dl Iron 23 L (65-175) ug/dL TIBC 183 (100-400) ug/dL % Saturation 13 L (20-55) % Transferrin 146 L (202-364) mg/dL C-Reactive Protein 9.0 H* (<1.0) mg/dL Vitamin B12 654 (193-986) pg/ml [place] Results last 24 hrs: Microbiology 12/08/16 16:24 Aerobic Blood Culture - Preliminary Blood - Venous - Lab Draw NO GROWTH AFTER 2 DAYS Anaerobic Blood Culture - Final 12/08/16 16:15 Aerobic Blood Culture - Preliminary Blood - Venous NO GROWTH AFTER 2 DAYS Anaerobic Blood Culture - Preliminary NO GROWTH AFTER 2 DAYS 12/08/16 17:36 Gram Stain - Final Sputum - Expectorated Sputum Culture - Final Normal [place]achael 12/08/16 06:03 Legionella Urinary Antigen - Final Urine 12/08/16 06:03 Streptococcus pneumoniae Antigen (M - Final Urine - Clean Catch Midstream Med Orders - Current: Current Medications Acetaminophen (Tylenol) 650 mg PO Q4H PRN PRN Reason: Pain (Mild 1-3)/fever Hydrocodone Bitart/Acetaminophen ([place] 325-5 Mg) 1 tab PO Q4H PRN PRN Reason: Pain (moderate 4-6) Albuterol (Proventil Hfa) 0 gm INH QID PRN PRN Reason: Wheezing Albuterol (Proventil) 2.5 mg NEB Q4HRRT PRN PRN Reason: wheezing Albuterol/Ipratropium (Duoneb 3.0-0.5 Mg/3 Ml) 3 ml NEB Q4H PRN PRN Reason: Shortness Of Breath/wheezing Albuterol/Ipratropium (Duoneb 3.0-0.5 Mg/3 Ml) 3 ml INH BID [facility] Last Admin: 12/11/16 08:15 Dose: 3 ml Apixaban (Eliquis) 5 mg PO BID [facility] Last Admin: 12/11/16 08:28 Dose: 5 mg Ascorbic Acid (Vitamin C) 500 mg PO BIDMEALS [facility] Last Admin: 12/11/16 06:17 Dose: 500 mg Aspirin (Halfprin) 81 mg PO DAILY [facility] Last Admin: 12/11/16 08:29 Dose: 81 mg Bisacodyl (Dulcolax) 5 mg PO DAILY PRN PRN Reason: Constipation Calcium Carbonate (Calcium Carbonate/Vitamin D 1500 Mg-200 Unit) 1 tab PO DAILY [facility] Last Admin: 12/11/16 08:29 Dose: 1 tab Docusate Sodium (Colace) 100 mg PO BID PRN PRN Reason: Constipation Docusate Sodium (Colace) 200 mg PO BID [facility] Last Admin: 12/11/16 08:28 Dose: 200 mg Doxazosin Mesylate (Cardura) 2 mg PO BEDTIME [facility] Ferrous Sulfate (Ferrous Sulfate) 325 mg PO BIDMEALS [facility] Last Admin: 12/11/16 06:17 Dose: 325 mg Furosemide (Lasix) 20 mg PO DAILY [facility] Last Admin: 12/11/16 08:29 Dose: 20 mg Guaifenesin (Mucinex) 1,200 mg PO BID [facility] Last Admin: 12/11/16 08:29 Dose: 1,200 mg Hydromorphone HCl (Dilaudid) 0.25 mg IVPUSH Q2H PRN PRN Reason: Pain (severe 7-10) Azithromycin 500 mg/ Sodium (Chloride) 250 mls @ 250 mls/hr IV Q24H [facility] Last Admin: 12/10/16 17:56 Dose: 250 mls/hr Cefepime HCl 2 gm/ Premix 50 mls @ 100 mls/hr IV Q12H [facility] Last Admin: 12/11/16 00:06 Dose: 100 mls/hr Levothyroxine Sodium (Synthroid) 50 mcg PO ACBREAKFAST [facility] Last Admin: 12/11/16 06:18 Dose: 50 mcg Lorazepam (Ativan) 0.5 mg IV Q6H PRN PRN Reason: Anxiety Losartan Potassium (Cozaar) 25 mg PO DAILY [facility] Last Admin: 12/11/16 08:29 Dose: 25 mg Magnesium Oxide (Magnesium Oxide) 400 mg PO DAILY [facility] Last Admin: 12/11/16 08:28 Dose: 400 mg Ondansetron HCl (Zofran) 4 mg IV Q6H PRN PRN Reason: Nausea/Vomiting Breo Ellipta ( Fluticasone/Vilanterol) Inhaler 0 each INH DAILY [facility] Last Admin: 12/11/16 08:15 Dose: 1 each Polyethylene Glycol (Miralax) 17 gm PO DAILY PRN PRN Reason: Constipation Last Admin: 12/09/16 09:06 Dose: 17 gm Pyridoxine HCl (Vitamin B6-Pyridoxine) 100 mg PO DAILY [facility] Last Admin: 12/11/16 08:28 Dose: 100 mg Saccharomyces Boulardii (Florastor) 250 mg PO BID [facility] Last Admin: 12/11/16 08:28 Dose: 250 mg Senna/Docusate Sodium (Senna Plus) 1 tab PO BID PRN PRN Reason: Constipation Sertraline HCl (Zoloft) 25 mg PO DAILY [facility] Last Admin: 12/11/16 08:28 Dose: 25 mg Sodium Chloride (Saline Flush) 10 ml FLUSH ASDIRECTED PRN PRN Reason: Keep Vein Open Tamsulosin HCl (Flomax) 0.4 mg PO BIDPC [facility] Last Admin: 12/11/16 08:29 Dose: 0.4 mg Temazepam (Restoril) 7.5 mg PO BEDTIME PRN PRN Reason: Sleep Discontinued Medications Albuterol (Proventil Neb Soln) 2.5 mg INH Q4HRRT [facility] Last Admin: 12/09/16 05:52 Dose: 2.5 mg Calcium Carbonate (Calcium Carbonate/Vitamin D 1500 Mg-200 Unit) 600 tab PO DAILY [facility] Last Admin: 12/10/16 08:16 Dose: 1 tab Piperacillin Sod/Tazobactam (Sod 4.5 gm/ Sodium Chloride) 100 mls @ 25 mls/hr IV Q6H [facility] Last Admin: 12/08/16 18:50 Dose: Not Given Ceftriaxone Sodium 1 gm/ (Sodium Chloride) 100 mls @ 200 mls/hr IV Q24H [facility] Last Admin: 12/08/16 17:58 Dose: 200 mls/hr Tamsulosin HCl (Flomax) 0.4 mg PO DAILY [facility] Last Admin: 12/10/16 08:15 Dose: 0.4 mg - Exam Quality Assessment: supplemental oxygen, DVT prophylaxis General: alert, oriented, cooperative, no acute distress HEENT: Pupils equal, Pupils reactive, EOMI, Mucous membr. moist/pink Neck: supple Lungs: Normal respiratory effort, Decreased breath sounds, Rhonchi (throughout with expiration), Wheezing (expiration) Cardiovascular: Irregular Rhythm, Other (distant) Abdomen: bowel sounds present, soft, no tenderness, no distension (Male) Exam: Deferred Back Exam: normal inspection Extremities: no edema, no calf tenderness Peripheral Pulses: 1+: dorsalis pedis (L), dorsalis pedis (R) Skin: warm, dry, intact Neurological: no new focal deficit Psy/Mental Status: alert, normal affect, normal mood - Problem List & Annotations (1) Pneumonia SNOMED Code(s): 385573580 Code(s): J18.9 - PNEUMONIA, UNSPECIFIED ORGANISM Status: Acute Priority: High Current Visit: Yes Qualifiers: Pneumonia type: due to unspecified organism Laterality: left Lung location: lower lobe of lung Qualified Code(s): J18.1 - Lobar pneumonia, unspecified organism (2) Anemia SNOMED Code(s): 758442308 Code(s): D64.9 - ANEMIA, UNSPECIFIED Status: Chronic Priority: Medium Current Visit: Yes (3) Afib SNOMED Code(s): 86326961 Code(s): I48.91 - UNSPECIFIED ATRIAL FIBRILLATION Status: Chronic Priority: Medium Current Visit: Yes Qualifiers: Atrial fibrillation type: chronic Qualified Code(s): I48.2 - Chronic atrial fibrillation (4) CLL (chronic lymphocytic leukemia) SNOMED Code(s): 93124667 Code(s): C91.10 - CHRONIC LYMPHOCYTIC LEUK OF B-CELL TYPE NOT ACHIEVE REMIS Status: Chronic Priority: Medium Current Visit: No - Problem List Review Problem List Initiated/Reviewed/Updated: Yes - My Orders Last 24 Hours: My Active Orders 12/11/16 06:05 Hemoccult [OCCULT BLOOD DIAGNOSTIC] [OP] Routine 12/11/16 07:00 Ascorbic Acid [Vitamin C] 500 mg PO BIDMEALS Ferrous Sulfate 325 mg PO BIDMEALS 12/11/16 09:00 Tamsulosin [Flomax] 0.4 mg PO BIDPC 12/11/16 21:00 Doxazosin [Cardura] 2 mg PO BEDTIME - Plan Plan:: Assessment/Plan: Acute: PNA-LLL - Info obtained from PCP - No disc or imaging study available for review for baseline CXR - Risk Factor: RAD and Immmuno-suppressed state - PSI score 132: Moderate Risk inpatient admission - Bronchodilators, IV Antibiotics: Azithromycin/Cefepime, RT care - Decongestant with Mucinex - Sputum Cx/Sx pending--initial sputum from [place] with report today of gram + cocci - Legionella and Strep Ag- negative - Mycoplasma negative - BC negative thus far - Encourage to uses FV and IS q2 awake as directed - Repeat CXR this am shows aortic knob is increasing in size from prior exam , could represent aneurym, noncontrast CT can be obtained to further evaluate. Minimal atelectasis to lt lung base otherwise. Will obtain chest CT without contrast for further eval. Discussed this with patient and daughter, Karol. -chest CT with minimal dilation of ascending aortic aneurysm measusring at 3.8cm; areas of right upper and mid and left lower lobe pneumonias noted. Anemia- iron deficiency -confirmed with iron studies done yesterday with iron level low of 23 -Hemoccult stool ordered -Started on ferrous sulfate 325mg BID with vit C 500mg -Hgb 11.3 today, best it has been x 2 years based on chart review of visits to hospital/labs at hospital Nocturia with hx of BPH -Nursing reported up to void multiple times in the night -Increased flomax to BID and added cardura to HS regimen Resolved: S/p Leukoctycosis - 2/2 Above - WBC is now back to normal- improved and stable - Cont to Monitor Chronic: HTN- stable HLD PAF on Eliquis BPH OA/DJD RAD Anemia CKD Stage 3 Depression Hypothyroidism Hx/o SSS S/p PPM CLL on Chemotherapy Hx/o ESWL for renal stones H/xo DVT Hypogammaglobulinemia Plan: He is clinically stable Continue current treatment Routine AM Labs Continue PT/OT CXR serial- will have repeat tomorrow am Encourage to ambulate as tolerated SW/CM for d/c planning-- likely 1-2 more days then plan for dc home. Code status: 1
[2016-12-11] MEDS: Levofloxacin/Dextrose 5%-Water 750 MG in Premix Bag 1 BAG IV SCH (13:10)
[2016-12-11] MEDS: Azithromycin 250 MG Tab PO SCH (17:20)
[2016-12-11] MEDS: Doxazosin 2 MG Tab PO SCH (20:52)
[2016-12-11] MEDS: Acetaminophen 325 MG Tab PO PRN (22:50)
[2016-12-12] MEDS: Cefepime 2 GM in Premix Bag 1 BAG IV SCH ×2 (02:26→13:13)
[2016-12-12] MEDS: Ascorbic Acid 500 MG Tab PO SCH ×2 (06:54→17:01)
[2016-12-12] MEDS: Ferrous Sulfate 325 MG Tab PO SCH ×2 (06:55→17:01)
[2016-12-12] MEDS: Levothyroxine 50 MCG Tab PO SCH (06:55)
--- NOTE | 2016-12-12 07:34 | PCM.PN ---
- General Info Date of Service: 12/12/16 Admission Dx/Problem (Free Text): PNA Subjective Update: Follow Up Functional Status: Reports: pain controlled, tolerating diet, ambulating, urinating. Denies: new symptoms - Review of Systems General: Reports: Weakness. Denies: Fever, Fatigue, Malaise, Chills HEENT: Reports: no symptoms Pulmonary: Reports: shortness of breath, cough, sputum. Denies: wheezing Cardiovascular: Denies: Chest Pain Gastrointestinal: Denies: Abdominal pain, Constipation, Diarrhea, Difficulty swallowing, Nausea, Vomiting Genitourinary: Reports: frequency Musculoskeletal: Reports: no symptoms Skin: Denies: rash Neurological: Reports: Weakness. Denies: Confusion, Difficulty Walking, Gait Disturbance Psychiatric: Denies: confusion, depression, anxiety, agitation, cravings, hallucinations Systems Review Comment:: Overnight, he slept well. He feels a little better. He remains afebrile w/o leukocytosis. He is also breathing on RA, sating at 90-94%. He appears comfortable. His nocturia improved. - Patient Data Vitals - most recent: Last Vital Signs Temp 36.7 C 12/12/16 05:01 Pulse 79 12/12/16 05:01 Resp 18 12/12/16 05:01 BP 120/57 L 12/12/16 05:01 Pulse Ox 99 12/12/16 05:01 Weight - most recent: 74.117 kg I&O - last 24 hours: Intake & Output 12/11/16 12/12/16 12/12/16 22:59 06:59 14:59 Intake Total 1760 400 Output Total 1800 2350 Balance -40 -1950 Lab Results last 24 hrs: Laboratory Results - last 24 hr 12/12/16 12/12/16 Range/Units 05:21 05:21 WBC 6.67 (4.23-9.07) K/mm3 RBC 3.82 L (4.63-6.08) M/mm3 Hgb 11.0 L (13.7-17.5) gm/L Hct 34.9 L (40.1-51.0) % MCV 91.4 (79.0-92.2) fl MCH 28.8 (25.7-32.2) pg MCHC 31.5 L (32.2-35.5) g/dl RDW Std Deviation 48.9 H (35.1-43.9) fL Plt Count 204 (163-337) K/mm3 MPV 9.3 L (9.4-12.3) fl Neut % (Auto) 64.9 (34.0-67.9) % Lymph % (Auto) 22.0 (21.8-53.1) % [place] % (Auto) 7.3 (5.3-12.2) % Eos % (Auto) 3.3 (0.8-7.0) Baso % (Auto) 0.3 (0.1-1.2) % Neut # (Auto) 4.32 (1.78-5.38) K/mm3 Lymph # (Auto) 1.47 (1.32-3.57) K/mm3 [place] # (Auto) 0.49 (0.30-0.82) K/mm3 Eos # (Auto) 0.22 (0.04-0.54) K/mm3 Baso # (Auto) 0.02 (0.01-0.08) K/mm3 Manual Slide Review Abnormal smear Sodium 135 L (136-145) mEq/L Potassium 4.4 (3.5-5.1) mEq/L Chloride 100 (98-107) mEq/L Carbon Dioxide 27 (21-32) mEq/L Anion Gap 12.4 (5-15) BUN 22 H (7-18) mg/dL Creatinine 1.3 (0.7-1.3) mg/dL Est Cr Clr Drug Dosing 33.83 mL/min Estimated GFR (MDRD) 53 (>60) mL/min BUN/Creatinine Ratio 16.9 (14-18) Glucose 120 H (83-115) mg/dL Calcium 9.0 (8.5-10.1) mg/dL Magnesium 2.3 (1.8-2.4) mg/dl C-Reactive Protein 6.4 H* (<1.0) mg/dL [place] Results last 24 hrs: Microbiology 12/08/16 16:24 Aerobic Blood Culture - Preliminary Blood - Venous - Lab Draw NO GROWTH AFTER 3 DAYS Anaerobic Blood Culture - Final 12/08/16 16:15 Aerobic Blood Culture - Preliminary Blood - Venous NO GROWTH AFTER 3 DAYS Anaerobic Blood Culture - Preliminary NO GROWTH AFTER 3 DAYS 12/11/16 13:50 Stool Occult Blood ([place]) - Final Stool / Feces NEGATIVE OCCULT BLOOD Med Orders - Current: Current Medications Acetaminophen (Tylenol) 650 mg PO Q4H PRN PRN Reason: Pain (Mild 1-3)/fever Last Admin: 12/11/16 22:50 Dose: 650 mg Hydrocodone Bitart/Acetaminophen ([place] 325-5 Mg) 1 tab PO Q4H PRN PRN Reason: Pain (moderate 4-6) Albuterol (Proventil Hfa) 0 gm INH QID PRN PRN Reason: Wheezing Albuterol (Proventil) 2.5 mg NEB Q4HRRT PRN PRN Reason: wheezing Albuterol/Ipratropium (Duoneb 3.0-0.5 Mg/3 Ml) 3 ml NEB Q4H PRN PRN Reason: Shortness Of Breath/wheezing Albuterol/Ipratropium (Duoneb 3.0-0.5 Mg/3 Ml) 3 ml INH BID [facility] Last Admin: 12/11/16 20:59 Dose: 3 ml Apixaban (Eliquis) 5 mg PO BID [facility] Last Admin: 12/11/16 20:53 Dose: 5 mg Ascorbic Acid (Vitamin C) 500 mg PO BIDMEALS [facility] Last Admin: 12/12/16 06:54 Dose: 500 mg Aspirin (Halfprin) 81 mg PO DAILY [facility] Last Admin: 12/11/16 08:29 Dose: 81 mg Azithromycin (Zithromax) 250 mg PO DAILY@1800 [facility] Last Admin: 12/11/16 17:20 Dose: 250 mg Bisacodyl (Dulcolax) 5 mg PO DAILY PRN PRN Reason: Constipation Calcium Carbonate (Calcium Carbonate/Vitamin D 1500 Mg-200 Unit) 1 tab PO DAILY [facility] Last Admin: 12/11/16 08:29 Dose: 1 tab Docusate Sodium (Colace) 100 mg PO BID PRN PRN Reason: Constipation Docusate Sodium (Colace) 200 mg PO BID [facility] Last Admin: 12/11/16 20:53 Dose: 200 mg Doxazosin Mesylate (Cardura) 2 mg PO BEDTIME [facility] Last Admin: 12/11/16 20:52 Dose: 2 mg Ferrous Sulfate (Ferrous Sulfate) 325 mg PO BIDMEALS [facility] Last Admin: 12/12/16 06:55 Dose: 325 mg Furosemide (Lasix) 20 mg PO DAILY [facility] Last Admin: 12/11/16 08:29 Dose: 20 mg Guaifenesin (Mucinex) 1,200 mg PO BID [facility] Last Admin: 12/11/16 20:54 Dose: 1,200 mg Hydromorphone HCl (Dilaudid) 0.25 mg IVPUSH Q2H PRN PRN Reason: Pain (severe 7-10) Cefepime HCl 2 gm/ Premix 50 mls @ 100 mls/hr IV Q12H [facility] Last Admin: 12/12/16 02:26 Dose: 100 mls/hr Levofloxacin/Dextrose 750 mg/ (Premix) 150 mls @ 100 mls/hr IV Q48H [facility] Last Admin: 12/11/16 13:10 Dose: 100 mls/hr Levothyroxine Sodium (Synthroid) 50 mcg PO ACBREAKFAST [facility] Last Admin: 12/12/16 06:55 Dose: 50 mcg Lorazepam (Ativan) 0.5 mg IV Q6H PRN PRN Reason: Anxiety Losartan Potassium (Cozaar) 25 mg PO DAILY [facility] Last Admin: 12/11/16 08:29 Dose: 25 mg Magnesium Oxide (Magnesium Oxide) 400 mg PO DAILY [facility] Last Admin: 12/11/16 08:28 Dose: 400 mg Ondansetron HCl (Zofran) 4 mg IV Q6H PRN PRN Reason: Nausea/Vomiting Breo Ellipta ( Fluticasone/Vilanterol) Inhaler 0 each INH DAILY [facility] Last Admin: 12/11/16 08:15 Dose: 1 each Polyethylene Glycol (Miralax) 17 gm PO DAILY PRN PRN Reason: Constipation Last Admin: 12/09/16 09:06 Dose: 17 gm Pyridoxine HCl (Vitamin B6-Pyridoxine) 100 mg PO DAILY [facility] Last Admin: 12/11/16 08:28 Dose: 100 mg Saccharomyces Boulardii (Florastor) 250 mg PO BID [facility] Last Admin: 12/11/16 20:53 Dose: 250 mg Senna/Docusate Sodium (Senna Plus) 1 tab PO BID PRN PRN Reason: Constipation Sertraline HCl (Zoloft) 25 mg PO DAILY [facility] Last Admin: 12/11/16 08:28 Dose: 25 mg Sodium Chloride (Saline Flush) 10 ml FLUSH ASDIRECTED PRN PRN Reason: Keep Vein Open Tamsulosin HCl (Flomax) 0.4 mg PO BIDPC [facility] Last Admin: 12/11/16 17:21 Dose: 0.4 mg Temazepam (Restoril) 7.5 mg PO BEDTIME PRN PRN Reason: Sleep Discontinued Medications Albuterol (Proventil Neb Soln) 2.5 mg INH Q4HRRT [facility] Last Admin: 12/09/16 05:52 Dose: 2.5 mg Calcium Carbonate (Calcium Carbonate/Vitamin D 1500 Mg-200 Unit) 600 tab PO DAILY [facility] Last Admin: 12/10/16 08:16 Dose: 1 tab Azithromycin 500 mg/ Sodium (Chloride) 250 mls @ 250 mls/hr IV Q24H [facility] Last Admin: 12/10/16 17:56 Dose: 250 mls/hr Piperacillin Sod/Tazobactam (Sod 4.5 gm/ Sodium Chloride) 100 mls @ 25 mls/hr IV Q6H [facility] Last Admin: 12/08/16 18:50 Dose: Not Given Ceftriaxone Sodium 1 gm/ (Sodium Chloride) 100 mls @ 200 mls/hr IV Q24H [facility] Last Admin: 12/08/16 17:58 Dose: 200 mls/hr Tamsulosin HCl (Flomax) 0.4 mg PO DAILY [facility] Last Admin: 12/10/16 08:15 Dose: 0.4 mg - Exam Quality Assessment: No: supplemental oxygen General: alert, oriented, cooperative, no acute distress HEENT: Pupils equal, Pupils reactive, EOMI, Mucous membr. moist/pink Neck: supple, trachea midline, no JVD, no thyromegaly Lungs: Normal respiratory effort, Decreased breath sounds, Rhonchi, Wheezing Cardiovascular: Irregular Rhythm Abdomen: bowel sounds present, soft, no tenderness, no distension (Male) Exam: Deferred Back Exam: normal inspection, decreased range of motion Extremities: no edema, normal pulses, no tenderness/swelling, no clubbing, no cyanosis, no calf tenderness Peripheral Pulses: 2+: dorsalis pedis (L), dorsalis pedis (R) Skin: warm, dry, intact Neurological: no new focal deficit Psy/Mental Status: alert, normal affect, normal mood - Problem List Review Problem List Initiated/Reviewed/Updated: Yes - Plan Plan:: Assessment/Plan: Acute: PNA-LLL - Info obtained from PCP - No disc or imaging study available for review for baseline CXR - Risk Factor: RAD and Immmuno-suppressed state - PSI score 132: Moderate Risk inpatient admission - Bronchodilators, IV Antibiotics: Azithromycin/Cefepime, RT care - Decongestant with Mucinex - Sputum Cx/Sx pending--initial sputum from [place] with report today of gram + cocci - Legionella and Strep Ag- negative - Mycoplasma negative - BC negative thus far - Encourage to uses FV and IS q2 awake as directed - Repeat CXR this am shows aortic knob is increasing in size from prior exam , could represent aneurym, noncontrast CT can be obtained to further evaluate. Minimal atelectasis to lt lung base otherwise. Will obtain chest CT without contrast for further eval. Discussed this with patient and daughter, - Chest CT with minimal dilation of ascending aortic aneurysm measusring at 3.8cm; areas of right upper and mid and left lower lobe pneumonias noted. Anemia- iron deficiency - Confirmed with iron studies done yesterday with iron level low of 23 - Hemoccult stool ordered - Started on ferrous sulfate 325mg BID with vit C 500mg - Hgb 11.3 today, best it has been x 2 years based on chart review of visits to hospital/labs at hospital Nocturia with hx of BPH, Improved - Nursing reported up to void multiple times in the night - Increased flomax to BID and added cardura to HS regimen Resolved: S/p Leukoctycosis - 2/2 Above - WBC is now back to normal- improved and stable - Cont to Monitor Generalized Weakness/Fatigue - Continue PT/OT Chronic: HTN- stable HLD PAF on Eliquis BPH OA/DJD RAD Anemia CKD Stage 3 Depression Hypothyroidism Hx/o SSS S/p PPM CLL on Chemotherapy Hx/o ESWL for renal stones H/xo DVT Hypogammaglobulinemia Plan: He is clinically stable He has not had to use supplemental O2 Continue current treatment Routine AM Labs Continue PT/OT CXR - increasing density on left base left to be worsening atelectasis Encourage to ambulate as tolerated Encourage to use DV/IS as directed SW/CM for d/c planning-- likely 1-2 more days then plan for d/c home Code status: 1 LOS anticipate > 96 he requires more antibiotic treatment and improve weakness
[2016-12-12] MEDS: Calcium Carbonate/Vitamin D3 1500 MG-200 Units Tab PO SCH (08:16)
[2016-12-12] MEDS: Vitamin B6-pyridOXINE 50 MG Tab PO SCH (08:16)
[2016-12-12] MEDS: Aspirin 81 MG Tab.EC PO SCH (08:16)
[2016-12-12] MEDS: Saccharomyces Boulardii (Probiotic) 250 MG Cap PO SCH ×2 (08:16→20:44)
[2016-12-12] MEDS: guaiFENesin 600 MG Tab.ER PO SCH ×2 (08:16→20:44)
[2016-12-12] MEDS: Apixaban 5 MG Tab PO SCH ×2 (08:16→20:44)
[2016-12-12] MEDS: Sertraline 25 MG Tab PO SCH (08:16)
[2016-12-12] MEDS: Docusate Sodium 100 MG Cap PO SCH ×2 (08:17→20:44)
--- NOTE | 2016-12-12 08:30 | CR ---
Chest: 2 views of the chest are obtained. Comparison: Previous chest x-ray of 12/10/16. Increasing density within the left base from prior study is seen. Patchy areas of increased density are noted within the right upper and right lower lung are seen. Findings are fairly stable from prior exam. Heart size is normal. Tortuous thoracic aorta is seen. Pacemaker is noted. Right-sided infusion catheter is seen. Chronic bilateral rotator cuff tears are seen within the shoulders. Degenerative change and scoliosis is noted within the spine. Impression: 1. Increasing density within left base from prior study which is felt compatible with increasing atelectasis. 2. Other areas of increased density remain fairly stable from prior study. Other portions of the chest are also stable. Diagnostic code #3
[2016-12-12] MEDS: Furosemide 20 MG Tab PO SCH (08:40)
[2016-12-12] MEDS: Losartan 25 MG Tab PO SCH (08:40)
[2016-12-12] MEDS: Tamsulosin 0.4 MG Cap.ER PO SCH ×2 (08:43→17:01)
[2016-12-12] MEDS: Magnesium Oxide 400 MG Tab PO SCH (09:19)
[2016-12-12] MEDS: BREO ELLIPTA INH SCH (09:29)
[2016-12-12] MEDS: Albuterol/Ipratropium 3.0-0.5 MG/3 ML Neb Soln INH SCH ×2 (09:29→20:49)
[2016-12-12] MEDS: Azithromycin 250 MG Tab PO SCH (17:01)
[2016-12-12] MEDS: Doxazosin 2 MG Tab PO SCH (20:43)
[2016-12-13] MEDS: Acetaminophen 325 MG Tab PO PRN ×2 (00:26→22:00)
[2016-12-13] MEDS: Cefepime 2 GM in Premix Bag 1 BAG IV SCH ×2 (00:27→12:03)
[2016-12-13] MEDS: Ferrous Sulfate 325 MG Tab PO SCH ×2 (06:46→17:06)
[2016-12-13] MEDS: Levothyroxine 50 MCG Tab PO SCH (06:46)
[2016-12-13] MEDS: Ascorbic Acid 500 MG Tab PO SCH ×2 (06:46→17:06)
[2016-12-13] MEDS: Saccharomyces Boulardii (Probiotic) 250 MG Cap PO SCH ×2 (08:02→21:57)
[2016-12-13] MEDS: Docusate Sodium 100 MG Cap PO SCH ×2 (08:03→22:00)
[2016-12-13] MEDS: Vitamin B6-pyridOXINE 50 MG Tab PO SCH (08:03)
[2016-12-13] MEDS: Calcium Carbonate/Vitamin D3 1500 MG-200 Units Tab PO SCH (08:03)
[2016-12-13] MEDS: Sertraline 25 MG Tab PO SCH (08:03)
[2016-12-13] MEDS: Furosemide 20 MG Tab PO SCH (08:03)
[2016-12-13] MEDS: Losartan 25 MG Tab PO SCH (08:04)
[2016-12-13] MEDS: guaiFENesin 600 MG Tab.ER PO SCH ×2 (08:04→21:57)
[2016-12-13] MEDS: Apixaban 5 MG Tab PO SCH ×2 (08:04→21:57)
[2016-12-13] MEDS: Tamsulosin 0.4 MG Cap.ER PO SCH ×2 (08:04→17:06)
[2016-12-13] MEDS: Aspirin 81 MG Tab.EC PO SCH (08:04)
[2016-12-13] MEDS: Magnesium Oxide 400 MG Tab PO SCH (08:14)
[2016-12-13] MEDS: Albuterol/Ipratropium 3.0-0.5 MG/3 ML Neb Soln INH SCH ×2 (08:51→20:55)
[2016-12-13] MEDS: BREO ELLIPTA INH SCH (08:51)
--- NOTE | 2016-12-13 09:49 | PCM.PN ---
- General Info Date of Service: 12/13/16 Admission Dx/Problem (Free Text): PNA Subjective Update: Follow Up Functional Status: Reports: pain controlled, tolerating diet, ambulating, urinating, new symptoms - Review of Systems General: Reports: Other (feels tired). Denies: Fever, Weakness, Fatigue, Malaise, Chills HEENT: Reports: no symptoms Pulmonary: Reports: shortness of breath, cough Cardiovascular: Denies: Chest Pain Gastrointestinal: Denies: Abdominal pain, Nausea, Vomiting Genitourinary: Reports: no symptoms Musculoskeletal: Reports: no symptoms Skin: Reports: no symptoms Neurological: Denies: Confusion, Difficulty Walking, Weakness, Gait Disturbance Psychiatric: Denies: depression, anxiety, cravings, hallucinations Systems Review Comment:: Patient went to sleep at about 3 this morning with low dose Restoril. He woke up feeling tired. He feels he is getting better overall. He is coughing up less phlegm now. He remains afebrile w/o leukocytosis. His CRP is now at 4. He has been ambulating down the lu. He has no new complaints. - Patient Data Vitals - most recent: Last Vital Signs Temp 36.8 C 12/13/16 07:54 Pulse 66 12/13/16 07:54 Resp 22 H 12/13/16 07:54 BP 124/70 12/13/16 08:04 Pulse Ox 98 12/13/16 08:51 Weight - most recent: 74.298 kg I&O - last 24 hours: Intake & Output 12/12/16 12/13/16 12/13/16 22:59 06:59 14:59 Intake Total 670 650 Output Total 600 1050 Balance 70 -400 Lab Results last 24 hrs: Laboratory Results - last 24 hr 12/13/16 12/13/16 Range/Units 07: 07:17 WBC 8.39 (4.23-9.07) K/mm3 RBC 3.85 L (4.63-6.08) M/mm3 Hgb 11.3 L (13.7-17.5) gm/L Hct 35.0 L (40.1-51.0) % MCV 90.9 (79.0-92.2) fl MCH 29.4 (25.7-32.2) pg MCHC 32.3 (32.2-35.5) g/dl RDW Std Deviation 48.8 H (35.1-43.9) fL Plt Count 220 (163-337) K/mm3 MPV 9.1 L (9.4-12.3) fl Neut % (Auto) 65.4 (34.0-67.9) % Lymph % (Auto) 23.2 (21.8-53.1) % [place] % (Auto) 6.8 (5.3-12.2) % Eos % (Auto) 3.0 (0.8-7.0) Baso % (Auto) 0.2 (0.1-1.2) % Neut # (Auto) 5.48 H (1.78-5.38) K/mm3 Lymph # (Auto) 1.95 (1.32-3.57) K/mm3 [place] # (Auto) 0.57 (0.30-0.82) K/mm3 Eos # (Auto) 0.25 (0.04-0.54) K/mm3 Baso # (Auto) 0.02 (0.01-0.08) K/mm3 Manual Slide Review Normal smear Sodium 136 (136-145) mEq/L Potassium 4.4 (3.5-5.1) mEq/L Chloride 102 (98-107) mEq/L Carbon Dioxide 24 (21-32) mEq/L Anion Gap 14.4 (5-15) BUN 25 H (7-18) mg/dL Creatinine 1.3 (0.7-1.3) mg/dL Est Cr Clr Drug Dosing 33.83 mL/min Estimated GFR (MDRD) 53 (>60) mL/min BUN/Creatinine Ratio 19.2 H (14-18) Glucose 102 (83-115) mg/dL Calcium 8.8 (8.5-10.1) mg/dL Magnesium 2.4 (1.8-2.4) mg/dl C-Reactive Protein 4.0 H* (<1.0) mg/dL [place] Results last 24 hrs: Microbiology 12/08/16 16:24 Aerobic Blood Culture - Preliminary Blood - Venous - Lab Draw NO GROWTH AFTER 4 DAYS Anaerobic Blood Culture - Final 12/08/16 16:15 Aerobic Blood Culture - Preliminary Blood - Venous NO GROWTH AFTER 4 DAYS Anaerobic Blood Culture - Preliminary NO GROWTH AFTER 4 DAYS Med Orders - Current: Current Medications Acetaminophen (Tylenol) 650 mg PO Q4H PRN PRN Reason: Pain (Mild 1-3)/fever Last Admin: 12/13/16 00:26 Dose: 650 mg Hydrocodone Bitart/Acetaminophen ([place] 325-5 Mg) 1 tab PO Q4H PRN PRN Reason: Pain (moderate 4-6) Albuterol (Proventil Hfa) 0 gm INH QID PRN PRN Reason: Wheezing Albuterol (Proventil) 2.5 mg NEB Q4HRRT PRN PRN Reason: wheezing Albuterol/Ipratropium (Duoneb 3.0-0.5 Mg/3 Ml) 3 ml NEB Q4H PRN PRN Reason: Shortness Of Breath/wheezing Albuterol/Ipratropium (Duoneb 3.0-0.5 Mg/3 Ml) 3 ml INH BID [facility] Last Admin: 12/13/16 08:51 Dose: 3 ml Apixaban (Eliquis) 5 mg PO BID [facility] Last Admin: 12/13/16 08:04 Dose: 5 mg Ascorbic Acid (Vitamin C) 500 mg PO BIDMEALS [facility] Last Admin: 12/13/16 06:46 Dose: 500 mg Aspirin (Halfprin) 81 mg PO DAILY [facility] Last Admin: 12/13/16 08:04 Dose: 81 mg Azithromycin (Zithromax) 250 mg PO DAILY@1800 [facility] Last Admin: 12/12/16 17:01 Dose: 250 mg Bisacodyl (Dulcolax) 5 mg PO DAILY PRN PRN Reason: Constipation Calcium Carbonate (Calcium Carbonate/Vitamin D 1500 Mg-200 Unit) 1 tab PO DAILY [facility] Last Admin: 12/13/16 08:03 Dose: 1 tab Docusate Sodium (Colace) 100 mg PO BID PRN PRN Reason: Constipation Docusate Sodium (Colace) 200 mg PO BID [facility] Last Admin: 12/13/16 08:03 Dose: 200 mg Doxazosin Mesylate (Cardura) 2 mg PO BEDTIME [facility] Last Admin: 12/12/16 20:43 Dose: Not Given Ferrous Sulfate (Ferrous Sulfate) 325 mg PO BIDMEALS [facility] Last Admin: 12/13/16 06:46 Dose: 325 mg Furosemide (Lasix) 20 mg PO DAILY [facility] Last Admin: 12/13/16 08:03 Dose: 20 mg Guaifenesin (Mucinex) 1,200 mg PO BID [facility] Last Admin: 12/13/16 08:04 Dose: 1,200 mg Hydromorphone HCl (Dilaudid) 0.25 mg IVPUSH Q2H PRN PRN Reason: Pain (severe 7-10) Cefepime HCl 2 gm/ Premix 50 mls @ 100 mls/hr IV Q12H [facility] Last Admin: 12/13/16 00:27 Dose: 100 mls/hr Levofloxacin/Dextrose 750 mg/ (Premix) 150 mls @ 100 mls/hr IV Q48H [facility] Last Admin: 12/11/16 13:10 Dose: 100 mls/hr Levothyroxine Sodium (Synthroid) 50 mcg PO ACBREAKFAST [facility] Last Admin: 12/13/16 06:46 Dose: 50 mcg Lorazepam (Ativan) 0.5 mg IV Q6H PRN PRN Reason: Anxiety Losartan Potassium (Cozaar) 25 mg PO DAILY [facility] Last Admin: 12/13/16 08:04 Dose: 25 mg Magnesium Oxide (Magnesium Oxide) 400 mg PO DAILY [facility] Last Admin: 12/13/16 08:14 Dose: Not Given Ondansetron HCl (Zofran) 4 mg IV Q6H PRN PRN Reason: Nausea/Vomiting Breo Ellipta ( Fluticasone/Vilanterol) Inhaler 0 each INH DAILY [facility] Last Admin: 12/13/16 08:51 Dose: 1 each Polyethylene Glycol (Miralax) 17 gm PO DAILY PRN PRN Reason: Constipation Last Admin: 12/09/16 09:06 Dose: 17 gm Pyridoxine HCl (Vitamin B6-Pyridoxine) 100 mg PO DAILY [facility] Last Admin: 12/13/16 08:03 Dose: 100 mg Saccharomyces Boulardii (Florastor) 250 mg PO BID [facility] Last Admin: 12/13/16 08:02 Dose: 250 mg Senna/Docusate Sodium (Senna Plus) 1 tab PO BID PRN PRN Reason: Constipation Sertraline HCl (Zoloft) 25 mg PO DAILY [facility] Last Admin: 12/13/16 08:03 Dose: 25 mg Sodium Chloride (Saline Flush) 10 ml FLUSH ASDIRECTED PRN PRN Reason: Keep Vein Open Tamsulosin [facility] ([facility]) [facility] Last Admin: 12/13/16 08:04 Dose: 0.4 mg Temazepam (Restoril) 7.5 mg PO BEDTIME PRN PRN Reason: Sleep Last Admin: 12/13/16 02:47 Dose: 7.5 mg Discontinued Medications Albuterol (Proventil Neb Soln) 2.5 mg INH Q4HRRT [facility] Last Admin: 12/09/16 05:52 Dose: 2.5 mg Calcium Carbonate (Calcium Carbonate/Vitamin D 1500 Mg-200 Unit) 600 tab PO DAILY [facility] Last Admin: 12/10/16 08:16 Dose: 1 tab Azithromycin 500 mg/ Sodium (Chloride) 250 mls @ 250 mls/hr IV Q24H [facility] Last Admin: 12/10/16 17:56 Dose: 250 mls/hr Piperacillin Sod/Tazobactam (Sod 4.5 gm/ Sodium Chloride) 100 mls @ 25 mls/hr IV Q6H [facility] Last Admin: 12/08/16 18:50 Dose: Not Given Ceftriaxone Sodium 1 gm/ (Sodium Chloride) 100 mls @ 200 mls/hr IV Q24H [facility] Last Admin: 12/08/16 17:58 Dose: 200 mls/hr Tamsulosin HCl (Flomax) 0.4 mg PO DAILY [facility] Last Admin: 12/10/16 08:15 Dose: 0.4 mg - Exam Quality Assessment: No: supplemental oxygen General: alert, oriented, cooperative, no acute distress HEENT: Pupils equal, Pupils reactive, EOMI, Mucous membr. moist/pink Neck: supple, trachea midline, no JVD, no thyromegaly Lungs: Normal respiratory effort, Decreased breath sounds, Rhonchi, Wheezing, Other (improved aeration on upper lung coreas) Cardiovascular: Irregular Rhythm Abdomen: bowel sounds present, soft, no tenderness, no distension (Male) Exam: Deferred Back Exam: normal inspection, decreased range of motion Extremities: no edema, normal pulses, no tenderness/swelling, no clubbing, no cyanosis, no calf tenderness Peripheral Pulses: 2+: dorsalis pedis (L), dorsalis pedis (R) Skin: warm, dry, intact Neurological: no new focal deficit Psy/Mental Status: alert, normal affect, normal mood - Problem List Review Problem List Initiated/Reviewed/Updated: Yes - Plan Plan:: Assessment/Plan: Acute: PNA-LLL - Info obtained from PCP - No disc or imaging study available for review for baseline CXR - Risk Factor: RAD and Immmuno-suppressed state - PSI score 132: Moderate Risk inpatient admission - Bronchodilators, IV Antibiotics: Azithromycin/Cefepime, RT care - Decongestant with Mucinex - Sputum Cx/Sx pending--initial sputum from [place] with report today of gram + cocci - Legionella, Mycoplasma and Strep Ag- all negative - BC negative thus far - Encourage to uses FV and IS q2 awake as directed - Repeat CXR this am shows aortic knob is increasing in size from prior exam , could represent aneurym, noncontrast CT can be obtained to further evaluate. Minimal atelectasis to lt lung base otherwise. Will obtain chest CT without contrast for further eval. Discussed this with patient and daughter, - Chest CT with minimal dilation of ascending aortic aneurysm measusring at 3.8cm; areas of right upper and mid and left lower lobe pneumonias noted. - Continue current treatment Anemia- iron deficiency, Stable at 11.3 - Confirmed with iron studies done yesterday with iron level low of 23 - Hemoccult stool ordered - Continue ferrous sulfate 325mg BID with vit C 500mg Nocturia with hx of BPH, Improved - Nursing reported up to void multiple times in the night - Continue flomax and cardura Resolved: S/p Leukoctycosis - 2/2 Above - WBC is now back to normal- improved and stable - Cont to Monitor Generalized Weakness/Fatigue - Continue PT/OT Chronic: HTN- stable HLD PAF on Eliquis BPH OA/DJD RAD Anemia CKD Stage 3 Depression Hypothyroidism Hx/o SSS S/p PPM CLL on Chemotherapy Hx/o ESWL for renal stones H/xo DVT Hypogammaglobulinemia Plan: He is clinically stable He has not had to use supplemental O2 Continue current treatment Routine AM Labs Continue PT/OT Encourage to ambulate as tolerated and use of FV/IS as directed SW/CM for d/c planning Possible d/c in am Code status: 1 LOS anticipate > 96 he requires more antibiotic treatment
[2016-12-13] MEDS: Levofloxacin/Dextrose 5%-Water 750 MG in Premix Bag 1 BAG IV SCH (12:32)
[2016-12-13] MEDS: Azithromycin 250 MG Tab PO SCH (17:06)
[2016-12-13] MEDS: Doxazosin 2 MG Tab PO SCH (21:57)
--- NOTE | 2016-12-13 23:12 | PCM.DCSUM1 ---
Discharge Summary - Hospital Course Brief History: This is an 81 yo elderly white male with past medical hx/o RAD and Hypogammaglobulinemia who comes in as a direct admit. He was seen initially from his PCP's clinic and was found to have left lower lobe pneumonia. - Discharge Data Discharge Date: 12/14/16 Discharge Disposition: Home, Self-Care 01 Condition: Good - Discharge Diagnosis/Problem(s) (1) Pneumonia SNOMED Code(s): 329004084 ICD Code: J18.9 - PNEUMONIA, UNSPECIFIED ORGANISM Status: Acute Priority : High Current Visit: Yes Qualifiers: Pneumonia type: due to unspecified organism Laterality: left Lung location: lower lobe of lung Qualified Code(s): J18.1 - Lobar pneumonia, unspecified organism (2) BPH associated with nocturia SNOMED Code(s): 242689453 ICD Code: N40.1 - BENIGN PROSTATIC HYPERPLASIA WITH LOWER URINARY TRACT SYMP ; R35.1 - NOCTURIA Status: Chronic Current Visit: Yes (3) Leukocytosis SNOMED Code(s): 428692109, 423593023 ICD Code: D72.829 - ELEVATED WHITE BLOOD CELL COUNT, UNSPECIFIED Status: Resolved Current Visit: Yes (4) Generalized weakness SNOMED Code(s): 40001301 ICD Code: R53.1 - WEAKNESS Status: Resolved Current Visit: Yes (5) Anemia SNOMED Code(s): 901437171 ICD Code: D64.9 - ANEMIA, UNSPECIFIED Status: Chronic Priority: Medium Current Visit: Yes - Patient Summary/Data Operative Procedure(s) Performed: None Complications: None Consults: Consultations 12/08/16 15:50 Consult to Case Management [CONS] Routine Consult to [place] [CONS] Routine Consult to Spiritual Care [CONS] Routine OT Evaluation and Treatment [CONS] Routine PT Evaluation and Treatment [CONS] Routine Respiratory Care Assess and Treatment [CONS] Routine Hospital Course: Patient was primarily admitted for Community Acquired PNA. He was initially seen at his PCP office and was found to have a left lower lobe pneumonia. Patient carries a hx/o CLL and Hypogammaglobulinemia which put him at higher risk for infections. On this admission was placed on appropriate intravenous antibiotics, supportive care, decongestant and routine RT care. He slowly improved on this regimen. His Mycoplasma IgM, Strep Ag, Legionella Ag, Blood Cultures and Influenza Screening were all negative. His follow chest x-ray shows improved lungs. Patient received a total 5 day course of antibiotics. Patient has done well since admission. His hospital course was fairly uncomplicated. The rest of his chronic medical illness remained stable during this admission. Patient is now ready for discharge. He will get an additional 3-day course of oral Levaquin. Incentive spirometry will be provided for him to use as directed. Patient was advised follow up with his PCP in 1-2 weeks. On the day of d/c, attempts to reach his PCP x 3 but w/o any success. - Patient Instructions Diet: Usual Diet as Tolerated Activity: As Tolerated Driving: May Drive Today Showering/Bathing: May Shower Notify Provider of: Fever, Increased Pain, Swelling and Redness, Nausea and/or Vomiting Other/Special Instructions: - Please take all your medications as directed. - Follow up with your doctor in 1-2 weeks. - Call you doctor for any quesetions or concerns. If you are unable to reach him, go to nearest medical faiclity for further care - Discharge Plan Prescriptions/Med Rec: Levofloxacin [Levaquin] 750 mg PO ASDIRECTED #3 tablet Home Medications: Home Meds Tamsulosin [Flomax] 0.4 mg PO DAILY 11/18/13 [History] Apixaban [Eliquis] 5 mg PO BID 09/13/16 [History] Furosemide [Lasix] 20 mg PO DAILY 09/13/16 [History] Losartan [Cozaar] 25 mg PO DAILY 09/13/16 [History] Pyridoxine HCl [Vitamin B-6] 100 mg PO DAILY 09/13/16 [History] Sertraline [Zoloft] 25 mg PO DAILY 09/13/16 [History] Albuterol [Proair HFA] 2 puff INH QID PRN 12/08/16 [History] Albuterol [Proventil Neb Soln] 1 ampule INH Q4HR PRN 12/08/16 [History] Albuterol/Ipratropium [DuoNeb 3.0-0.5 MG/3 ML] 1 vial INH BID 12/08/16 [History] Aspirin [Halfprin] 81 mg PO DAILY 12/08/16 [History] Calcium Carbonate/Vitamin D3 [Caltrate 600 Plus D3 Tablet] 600 mg PO DAILY 12/08 [History] Docusate Sodium [Colace] 200 mg PO BID 12/08/16 [History] Fluticasone/Vilanterol [Breo Ellipta 200-25 Mcg INH] 1 each IH DAILY 12/08/16 [ History] Levothyroxine [Synthroid] 50 mcg PO DAILY 12/08/16 [History] Magnesium 250 mg PO DAILY 12/08/16 [History] Levofloxacin [Levaquin] 750 mg PO ASDIRECTED #3 tablet 12/13/16 [Rx] Patient Handouts: Cough, Adult, [id number], Chronic Obstructive Pulmonary Disease, [id number], Atrial Fibrillation, [id number], Community-Acquired Pneumonia, Adult, [id number] Referrals: Monty Peoples MD [Primary Care Provider] - 12/29/16 9:30 am (Clinic will call you if an appointment time opens up before 12/29/16.) - Discharge Summary/Plan Comment DC Time >30 min.: Yes (40 mins) Discharge Summary/Plan Comment: Discharge to Home - General Info Date of Service: 12/14/16 Admission Dx/Problem (Free Text: PNA Subjective Update: Follow Up Functional Status: Reports: pain controlled, tolerating diet, ambulating, urinating. Denies: new symptoms - Review of Systems General: Denies: Fever, Weakness, Fatigue, Malaise, Chills HEENT: Reports: no symptoms Pulmonary: Reports: shortness of breath, wheezing. Denies: cough, sputum Cardiovascular: Denies: Chest Pain, Palpitations, Dyspnea on Exertion Gastrointestinal: Denies: Abdominal pain, Constipation, Diarrhea, Nausea, Vomiting Genitourinary: Reports: no symptoms Musculoskeletal: Reports: no symptoms Skin: Denies: cyanosis Neurological: Reports: Gait Disturbance. Denies: Confusion, Difficulty Walking , Weakness Psychiatric: Denies: confusion, depression, anxiety, hallucinations, homicidal ideation Systems Review Comment: No overnight or acute issues. He is doing relatively well and "feel pretty good ". He has no new complaints. - Patient Data Vitals - Most Recent: Last Vital Signs Temp 36.4 C 12/13/16 15:38 Pulse 64 12/13/16 15:38 Resp 14 12/13/16 15:38 BP 147/64 H 12/13/16 21:57 Pulse Ox 97 12/13/16 20:56 Weight - Most Recent: 74.298 kg I&O - Last 24 hours: Intake & Output 12/13/16 12/13/16 12/14/16 14:59 22:59 06:59 Intake Total 120 1250 Output Total 925 Balance 120 325 Lab Results - Last 24 hrs: Laboratory Results - last 24 hr 12/13/16 12/13/16 Range/Units 07:17 07:17 WBC 8.39 (4.23-9.07) K/mm3 RBC 3.85 L (4.63-6.08) M/mm3 Hgb 11.3 L (13.7-17.5) gm/L Hct 35.0 L (40.1-51.0) % MCV 90.9 (79.0-92.2) fl MCH 29.4 (25.7-32.2) pg MCHC 32.3 (32.2-35.5) g/dl RDW Std Deviation 48.8 H (35.1-43.9) fL Plt Count 220 (163-337) K/mm3 MPV 9.1 L (9.4-12.3) fl Neut % (Auto) 65.4 (34.0-67.9) % Lymph % (Auto) 23.2 (21.8-53.1) % [place] % (Auto) 6.8 (5.3-12.2) % Eos % (Auto) 3.0 (0.8-7.0) Baso % (Auto) 0.2 (0.1-1.2) % Neut # (Auto) 5.48 H (1.78-5.38) K/mm3 Lymph # (Auto) 1.95 (1.32-3.57) K/mm3 [place] # (Auto) 0.57 (0.30-0.82) K/mm3 Eos # (Auto) 0.25 (0.04-0.54) K/mm3 Baso # (Auto) 0.02 (0.01-0.08) K/mm3 Manual Slide Review Normal smear Sodium 136 (136-145) mEq/L Potassium 4.4 (3.5-5.1) mEq/L Chloride 102 (98-107) mEq/L Carbon Dioxide 24 (21-32) mEq/L Anion Gap 14.4 (5-15) BUN 25 H (7-18) mg/dL Creatinine 1.3 (0.7-1.3) mg/dL Est Cr Clr Drug Dosing 33.83 mL/min Estimated GFR (MDRD) 53 (>60) mL/min BUN/Creatinine Ratio 19.2 H (14-18) Glucose 102 (83-115) mg/dL Calcium 8.8 (8.5-10.1) mg/dL Magnesium 2.4 (1.8-2.4) mg/dl C-Reactive Protein 4.0 H* (<1.0) mg/dL NIA Results - Last 24 hrs: Microbiology 12/08/16 16:24 Aerobic Blood Culture - Preliminary Blood - Venous - Lab Draw NO GROWTH AFTER 5 DAYS Anaerobic Blood Culture - Final 12/08/16 16:15 Aerobic Blood Culture - Preliminary Blood - Venous NO GROWTH AFTER 5 DAYS Anaerobic Blood Culture - Preliminary NO GROWTH AFTER 5 DAYS Med Orders - Current: Current Medications Acetaminophen (Tylenol) 650 mg PO Q4H PRN PRN Reason: Pain (Mild 1-3)/fever Last Admin: 12/13/16 22:00 Dose: 650 mg Hydrocodone Bitart/Acetaminophen ([place] 325-5 Mg) 1 tab PO Q4H PRN PRN Reason: Pain (moderate 4-6) Albuterol (Proventil Hfa) 0 gm INH QID PRN PRN Reason: Wheezing Albuterol (Proventil) 2.5 mg NEB Q4HRRT PRN PRN Reason: wheezing Albuterol/Ipratropium (Duoneb 3.0-0.5 Mg/3 Ml) 3 ml NEB Q4H PRN PRN Reason: Shortness Of Breath/wheezing Albuterol/Ipratropium (Duoneb 3.0-0.5 Mg/3 Ml) 3 ml INH BID [facility] Last Admin: 12/13/16 20:55 Dose: 3 ml Apixaban (Eliquis) 5 mg PO BID [facility] Last Admin: 12/13/16 21:57 Dose: 5 mg Ascorbic Acid (Vitamin C) 500 mg PO BIDMEALS [facility] Last Admin: 12/13/16 17:06 Dose: 500 mg Aspirin (Halfprin) 81 mg PO DAILY [facility] Last Admin: 12/13/16 08:04 Dose: 81 mg Azithromycin (Zithromax) 250 mg PO DAILY@1800 [facility] Last Admin: 12/13/16 17:06 Dose: 250 mg Bisacodyl (Dulcolax) 5 mg PO DAILY PRN PRN Reason: Constipation Calcium Carbonate (Calcium Carbonate/Vitamin D 1500 Mg-200 Unit) 1 tab PO DAILY [facility] Last Admin: 12/13/16 08:03 Dose: 1 tab Docusate Sodium (Colace) 100 mg PO BID PRN PRN Reason: Constipation Docusate Sodium (Colace) 200 mg PO BID [facility] Last Admin: 12/13/16 22:00 Dose: 200 mg Doxazosin Mesylate (Cardura) 2 mg PO BEDTIME [facility] Last Admin: 12/13/16 21:57 Dose: 2 mg Ferrous Sulfate (Ferrous Sulfate) 325 mg PO BIDMEALS [facility] Last Admin: 12/13/16 17:06 Dose: 325 mg Furosemide (Lasix) 20 mg PO DAILY [facility] Last Admin: 12/13/16 08:03 Dose: 20 mg Guaifenesin (Mucinex) 1,200 mg PO BID [facility] Last Admin: 12/13/16 21:57 Dose: 1,200 mg Hydromorphone HCl (Dilaudid) 0.25 mg IVPUSH Q2H PRN PRN Reason: Pain (severe 7-10) Cefepime HCl 2 gm/ Premix 50 mls @ 100 mls/hr IV Q12H [facility] Last Admin: 12/13/16 12:03 Dose: 100 mls/hr Levofloxacin/Dextrose 750 mg/ (Premix) 150 mls @ 100 mls/hr IV Q48H [facility] Last Admin: 12/13/16 12:32 Dose: 100 mls/hr Levothyroxine Sodium (Synthroid) 50 mcg PO ACBREAKFAST [facility] Last Admin: 12/13/16 06:46 Dose: 50 mcg Lorazepam (Ativan) 0.5 mg IV Q6H PRN PRN Reason: Anxiety Losartan Potassium (Cozaar) 25 mg PO DAILY [facility] Last Admin: 12/13/16 08:04 Dose: 25 mg Magnesium Oxide (Magnesium Oxide) 400 mg PO DAILY [facility] Last Admin: 12/13/16 08:14 Dose: Not Given Ondansetron HCl (Zofran) 4 mg IV Q6H PRN PRN Reason: Nausea/Vomiting Breo Ellipta ( Fluticasone/Vilanterol) Inhaler 0 each INH DAILY [facility] Last Admin: 12/13/16 08:51 Dose: 1 each Polyethylene Glycol (Miralax) 17 gm PO DAILY PRN PRN Reason: Constipation Last Admin: 12/09/16 09:06 Dose: 17 gm Pyridoxine HCl (Vitamin B6-Pyridoxine) 100 mg PO DAILY [facility] Last Admin: 12/13/16 08:03 Dose: 100 mg Saccharomyces Boulardii (Florastor) 250 mg PO BID [facility] Last Admin: 12/13/16 21:57 Dose: 250 mg Senna/Docusate Sodium (Senna Plus) 1 tab PO BID PRN PRN Reason: Constipation Sertraline HCl (Zoloft) 25 mg PO DAILY [facility] Last Admin: 12/13/16 08:03 Dose: 25 mg Sodium Chloride (Saline Flush) 10 ml FLUSH ASDIRECTED PRN PRN Reason: Keep Vein Open Tamsulosin HCl (Flomax) 0.4 mg PO BIDPC [facility] Last Admin: 12/13/16 17:06 Dose: 0.4 mg Temazepam (Restoril) 7.5 mg PO BEDTIME PRN PRN Reason: Sleep Last Admin: 12/13/16 02:47 Dose: 7.5 mg Discontinued Medications Albuterol (Proventil Neb Soln) 2.5 mg INH Q4HRRT [facility] Last Admin: 12/09/16 05:52 Dose: 2.5 mg Calcium Carbonate (Calcium Carbonate/Vitamin D 1500 Mg-200 Unit) 600 tab PO DAILY [facility] Last Admin: 12/10/16 08:16 Dose: 1 tab Azithromycin 500 mg/ Sodium (Chloride) 250 mls @ 250 mls/hr IV Q24H [facility] Last Admin: 12/10/16 17:56 Dose: 250 mls/hr Piperacillin Sod/Tazobactam (Sod 4.5 gm/ Sodium Chloride) 100 mls @ 25 mls/hr IV Q6H [facility] Last Admin: 12/08/16 18:50 Dose: Not Given Ceftriaxone Sodium 1 gm/ (Sodium Chloride) 100 mls @ 200 mls/hr IV Q24H [facility] Last Admin: 12/08/16 17:58 Dose: 200 mls/hr Tamsulosin HCl (Flomax) 0.4 mg PO DAILY [facility] Last Admin: 12/10/16 08:15 Dose: 0.4 mg - Exam General: Reports: alert, oriented, cooperative, no acute distress HEENT: Reports: Pupils equal, Pupils reactive, EOMI, Mucous membr. moist/pink Neck: Reports: supple, trachea midline, no JVD, no thyromegaly Lungs: Reports: Normal respiratory effort, Decreased breath sounds, Other (Good and Much Improved Aeration) Cardiovascular: Reports: Regular Rate, Regular Rhythm Abdomen: Reports: bowel sounds present, soft, no tenderness, no distension (Male) Exam: Deferred Rectal (Males) Exam: Deferred Back Exam: Reports: normal inspection, decreased range of motion Extremities: Reports: no edema, normal pulses, no tenderness/swelling, no clubbing, no cyanosis, no calf tenderness Skin: Reports: warm, dry, intact Neurological: Reports: no new focal deficit Psy/Mental Status: Reports: alert, normal affect, normal mood *Q Meaningful Use (DIS) - VTE *Q VTE Criteria *Q: - Stroke *Q Stroke Criteria *Q: - AMI *Q AMI Criteria *Q:
[2016-12-14] MEDS: Cefepime 2 GM in Premix Bag 1 BAG IV SCH ×2 (01:19→13:16)
[2016-12-14] MEDS: Ferrous Sulfate 325 MG Tab PO SCH (05:59)
[2016-12-14] MEDS: Levothyroxine 50 MCG Tab PO SCH (05:59)
[2016-12-14] MEDS: Ascorbic Acid 500 MG Tab PO SCH (05:59)
[2016-12-14] MEDS: Tamsulosin 0.4 MG Cap.ER PO SCH (08:06)
[2016-12-14] MEDS: Saccharomyces Boulardii (Probiotic) 250 MG Cap PO SCH (08:06)
[2016-12-14] MEDS: Calcium Carbonate/Vitamin D3 1500 MG-200 Units Tab PO SCH (08:06)
[2016-12-14] MEDS: Vitamin B6-pyridOXINE 50 MG Tab PO SCH (08:06)
[2016-12-14] MEDS: Apixaban 5 MG Tab PO SCH (08:06)
[2016-12-14] MEDS: Magnesium Oxide 400 MG Tab PO SCH (08:06)
[2016-12-14] MEDS: Sertraline 25 MG Tab PO SCH (08:06)
[2016-12-14] MEDS: guaiFENesin 600 MG Tab.ER PO SCH (08:06)
[2016-12-14] MEDS: Aspirin 81 MG Tab.EC PO SCH (08:06)
[2016-12-14] MEDS: Losartan 25 MG Tab PO SCH (08:07)
[2016-12-14] MEDS: Docusate Sodium 100 MG Cap PO SCH (08:07)
[2016-12-14] MEDS: Furosemide 20 MG Tab PO SCH (08:07)
[2016-12-14] MEDS: BREO ELLIPTA INH SCH (08:23)
[2016-12-14] MEDS: Albuterol/Ipratropium 3.0-0.5 MG/3 ML Neb Soln INH SCH (08:23)
[2016-12-14 11:14] VITALS: BP 110/81
[2016-12-14] MEDS ORDERED: Levofloxacin/Dextrose 5%-Water 250 MG in Premix Bag 1 BAG IV ONE (13:00)
== END 2016-12-14 14:35 | disposition home or self-care (01) | DRG 194 ==
LOC: JD.MS 14:34
PROVIDERS: ADMIT Internal Medicine; ATTEND Internal Medicine
DX: J18.9 Pneumonia, unspecified organism (principal); C91.10 Chronic lymphocytic leukemia of B-cell type not having achieved remission; D80.1 Nonfamilial hypogammaglobulinemia; E78.5 Hyperlipidemia, unspecified; I48.0 Paroxysmal atrial fibrillation; Z79.01 Long term (current) use of anticoagulants; M19.90 Unspecified osteoarthritis, unspecified site; J45.909 Unspecified asthma, uncomplicated; I12.9 Hypertensive chronic kidney disease with stage 1 through stage 4 chronic kidney disease, or unspecified chronic kidney disease; N18.3 Chronic kidney disease, stage 3 (moderate); D64.9 Anemia, unspecified; F32.9 Major depressive disorder, single episode, unspecified; E03.9 Hypothyroidism, unspecified; Z86.718 Personal history of other venous thrombosis and embolism; D50.9 Iron deficiency anemia, unspecified; N40.1 Benign prostatic hyperplasia with lower urinary tract symptoms; R35.1 Nocturia; R53.1 Weakness; Z79.899 Other long term (current) drug therapy; Z95.0 Presence of cardiac pacemaker; Z87.01 Personal history of pneumonia (recurrent)
CPT/HCPCS: 36415; 71020; 71020-26; 71250; 71250-26; 80048; 82272; 82607; 83540; 83735; 84466; 85025; 86140; 86738; 87040; 87070; 87205; 87804; 87899; 94640; 94640-76; 94664; 94667; 94668; 94760; 94761; 97110-GP; 97116-GP; 97161-GP; 97165-GO; A9270-GY; J0456; J0692; J0696; J1642; J1956; J7030; J7050

== ENCOUNTER 2018-08-18 23:29 | Emergency (ER) | payer MEDICARE, OTHER ==
[2018-08-18 23:40] VITALS: BP 97/70
--- NOTE | 2018-08-18 23:42 | EDM.PDOC ---
ED HPI GENERAL MEDICAL PROBLEM - General Chief Complaint: Respiratory Problem Stated Complaint: SHORT OF BREATH Time Seen by Provider: 08/18/18 23:41 Source of Information: Reports: Patient, Family (spouse) History Limitations: Reports: No Limitations - History of Present Illness INITIAL COMMENTS - FREE TEXT/NARRATIVE: 83-year-old male presents the ED with his daughter. At is known to have chronic lymphocytic leukemia for many years but developed a very high white cell count about 6 months ago and is been trying different chemotherapeutic agents in an effort to lower his lymphocyte count which is high as 1 40,000. Today at the clinic it was 87.5 thousand. Medications have caused various side effects including severe cardiomyopathy with a decrease in his ejection fraction to as low as 20% which of course precipitated congestive heart failure. He presents to the ED tonight very short of breath. Patient can't walk 10 feet before he becomes dyspneic. He is not on oxygen at home. There is no formal history of COPD. Patient has a Port-A-Cath right upper anterior chest and is supposed to start a new chemotherapeutic agent tomorrow. He received immunoglobulin intravenously less than a liter of IV fluid. He did have increased dose of Lasix given today. In the past he's required metaxalone 3 times weekly as well as Lasix to improve his congestive failure. Patient has a cough but not bringing up any phlegm. Dates his appetite is poor. Bowel function tends to be more constipated. Onset: Gradual Duration: Week(s): (Gradually worsening dyspnea. Worse particularly over the last 24 hours) Location: Reports: Chest (Thank you his breath.) Quality: Reports: Other (Dyspnea with orthopnea) Severity: Severe Improves with: Reports: Rest Worsens with: Reports: Movement (Worse with movement. Even walking 10 feet) Context: Denies: Activity ( makes him turn blue and become very dyspneic.), Exercise, Lifting, Sick Contact, Trauma, Other Associated Symptoms: Reports: Cough, Loss of Appetite, Malaise, Nausea/Vomiting , Shortness of Breath, Weakness (Mild nausea times.). 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 below) (None.) - Related Data Allergies Allergy/AdvReac Type Severity Reaction Status Date / Time No Known Allergies Allergy Verified 08/18/18 23:35 Home Meds: Home Meds Tamsulosin [Flomax] 0.4 mg PO BEDTIME 11/18/13 [History] Apixaban [Eliquis] 5 mg PO BID 09/13/16 [History] Furosemide [Lasix] 40 mg PO DAILY 09/13/16 [History] Losartan [Cozaar] 12.5 mg PO DAILY 09/13/16 [History] Pyridoxine HCl [Vitamin B-6] 100 mg PO DAILY 09/13/16 [History] Sertraline [Zoloft] 25 mg PO DAILY 09/13/16 [History] Albuterol [Proair HFA] 2 puff INH ASDIRECTED PRN 12/08/16 [History] Calcium Carbonate/Vitamin D3 [Caltrate 600 Plus D3 Tablet] 600 mg PO DAILY 12/08 [History] Docusate Sodium [Colace] 100 mg PO BEDTIME 12/08/16 [History] Levothyroxine [Synthroid] 100 mcg PO DAILY 12/08/16 [History] Magnesium 250 mg PO DAILY 12/08/16 [History] Zolpidem [Ambien] 5 mg PO BEDTIME PRN 03/16/18 [History] Albuterol/Ipratropium [DuoNeb 3.0-0.5 MG/3 ML] 1 ampule INH QID PRN 03/21/18 [ History] Albuterol [Proventil] 1 dose INH QID PRN 04/15/18 [History] Immune Globulin,Gamma (IgG) [Privigen 10%] 1 dose IV Q30D 04/15/18 [History] Allopurinol [Zyloprim] 300 mg PO DAILY 06/14/18 [History] Budesonide [Pulmicort] 1 mg IH DAILY 06/14/18 [History] Idelalisib [Zydelig] 150 mg PO BID 08/18/18 [History] Sulfamethoxazole/Trimethoprim [Bactrim 400-80 MG] 1 tab PO DAILY 08/18/18 [ History] methylPREDNISolone [Methylprednisolone] 4 mg PO ASDIRECTED 08/18/18 [History] Past Medical History HEENT History: Reports: Hard of Hearing, Impaired Vision Cardiovascular History: Reports: High Cholesterol, Hypertension, Pacemaker, SOB on Exertion Other Cardiovascular History: Blood pressure has been slowly lowering over the last 6 months. Losartan was recently reduced to 12.5 mg a day from 25 mg a day. Her pressure hovers around the 95-100 systolic archie. 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 Other PRODUCT SAFETY EXPERT History: gynocomastia Musculoskeletal History: Reports: Arthritis Other Musculoskeletal History: Left hip Neurological History: Reports: None Psychiatric History: Reports: Depression Endocrine/Metabolic History: Reports: Hypothyroidism, Obesity/BMI 30+ Hematologic History: Reports: Blood Transfusion(s) Other Hematologic History: hx of one transfusion Immunologic History: Reports: Immunosuppression Oncologic (Cancer) History: Reports: Leukemia Other Oncologic History: CLL spe 6 months of bendamustapine Other Dermatologic History: left infiltration from chemo drug - Infectious Disease History Infectious Disease History: Reports: Influenza - Past Surgical History Head Surgeries/Procedures: Reports: None HEENT Surgical History: Reports: Cataract Surgery Cardiovascular Surgical History: Reports: None Respiratory Surgical History: Reports: None GI Surgical History: Reports: Hernia Repair/Other Male Surgical History: Reports: None Endocrine Surgical History: Reports: None Other Neurological Surgeries/Procedures: pt had 2-3 back surgery Musculoskeletal Surgical History: Reports: Carpal Tunnel, Hip Replacement Oncologic Surgical History: Reports: None, Bone Marrow Aspiration Dermatological Surgical History: Reports: None Social & Family History - Family History Family Medical History: Noncontributory HEENT: Reports: None Cardiac: Reports: Hypertension, [place], Other (See Below) Other Cardiac Family History: mother GI: Reports: Cholelithiasis, Other (See Below) Other GI Family History: father OBGYN: Reports: , Other (See Below) Other OBGYN Family History: mother Musculoskeletal: Reports: Arthritis, Other (See Below) Other Musculoskeletal Family History: both parents Neurological: Reports: Parkinson's, Other (See Below) Other Neurological Family History: father Psychiatric: Reports: Other (See Below) Other Psychiatric Family History: Alzheimers Endocrine/Metabolic: Reports: Diabetes, type II, Other (See Below) Other Endocrine/Metabolic Family History: sister Oncologic: Reports: Bladder Other Oncologic Family History: father - Caffeine Use Caffeine Use: Reports: Coffee - Living Situation & Occupation Living situation: Reports: Other 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 Denies: Fever, Chills HEENT: Reports: Glasses, Hearing Loss Respiratory: Reports: Shortness of Breath, Cough. Denies: Wheezing, Pleuritic Chest Pain Cardiovascular: Reports: Blood Pressure Problem (Usually been running too low and had to decrease blood pressure medications recently), Dyspnea on Exertion ( A slight at the ankles dyspnea on exertion even walking 10 feet makes him short of breath), Edema, Lightheadedness, Orthopnea. 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 He's breathing at 34-36/m maintaining O2 sats of 97% on room air.), Other (Vital signs reveal heart rate 1 14/m at rest. Afebrile blood pressures 97 /70) Eye Exam: Bilateral Eye: Normal Inspection, Other (Lobe peripheral margins are pallid.) Throat/Mouth: Normal Inspection, Normal Oropharynx Head: Atraumatic, Normocephalic Neck: Normal Inspection, Supple, Non-Tender, Full Range of Motion. No: Carotid Bruit, Lymphadenopathy (L), Lymphadenopathy (R) Respiratory/Chest: Respiratory Distress (Marked tachypnea 34-38/m.), Rales ( Throughout both lung coreas up past the lower 50% of lungs.). No: Stridor, Pleural Rub, Accessory Muscle Use, Retractions, Splinting GI/Abdominal: Normal Bowel Sounds, Distended (On is markedly distended and mildly tympanitic to percussion compatible with aerophagia.), Other (Michelle girth limits ability to palpate solid organs I could not actually palpate splenomegaly or hepatomegaly.) Back Exam: Normal Inspection, Full Range of Motion Extremities: Normal Inspection, Normal Range of Motion, Non-Tender, No Pedal Edema Neurological: Alert, Oriented, CN II-XII Intact, Normal Cognition Psychiatric: Other Skin Exam: Warm (Can only talk in one or 2 word sentences because of dyspnea), Dry, Pallor EKG INTERPRETATION EKG Date: 08/19/18 Time: 00:00 Rhythm: Other (No visible P waves appears to be a junctional rhythm) Rate (Beats/Min): 105 [place]: LAD-Left [place] Deviation (-47) P-Wave: Absent QRS: Other (There is Q-wave V1 and V2 and V3 compatible with old anteroseptal myocardial infarction. Is also near Q-wave in V4. Slight ST segment depression noted in V5 V6 and marked ST segment depression in leads 1 and aVL. Q waves are also present in leads 3 and aVF with perhaps mild ST segment elevation in lead 3. Evidence of old inferior wall myocardial infarction.) ST-T: Other (Deep T-wave inversion one in aVL i.e. lateral wall involvement cannot rule out ischemia.) EKG Interpretation Comments: Abnormal ECG Course - Vital Signs Last Recorded V/S: Last Vital Signs Temp 35.8 C 08/18/18 23:35 Pulse 114 H 08/18/18 23:35 Resp 34 H 08/18/18 23:35 BP 97/70 08/18/18 23:35 Pulse Ox 97 08/18/18 23:35 - Orders/Labs/Meds Orders: Active Orders 24 hr Category Date Time Status EKG Documentation Completion [RC] STAT Care 08/18/18 23:48 Active Oxygen Therapy [RC] ASDIRECTED Care 08/19/18 01:56 Active Chest 1V Frontal [CR] Stat Exams 08/18/18 23:48 Taken Labs: Laboratory Tests 08/18/18 08/18/18 08/18/18 Range/Units 23:55 23:55 23:55 WBC 97.87 H* (4.23-9.07) K/mm3 RBC 3.01 L (4.63-6.08) M/mm3 Hgb 9.2 L (13.7-17.5) gm/L Hct 31.0 L (40.1-51.0) % MCV 103.0 H (79.0-92.2) fl MCH 30.6 (25.7-32.2) pg MCHC 29.7 L (32.2-35.5) g/dl RDW Std Deviation 63.2 H (35.1-43.9) fL Plt Count 147 L (163-337) K/mm3 MPV 10.3 (9.4-12.3) fl Neutrophils % (Manual) 8 L (40-60) % Band Neutrophils % 0 (0-10) % Lymphocytes % (Manual) 91 H (20-40) % Atypical Lymphs % 0 % Monocytes % (Manual) 1 L (2-10) % Eosinophils % (Manual) 0 L (0.8-7.0) % Basophils % (Manual) 0 L (0.2-1.2) Toxic Granulation 1+ slight Platelet Estimate Adequate Plt Morphology Comment Normal Polychromasia 1+ slight Poikilocytosis 1+ slight Anisocytosis 2+ moderate Microcytosis 1+ slight Macrocytosis 1+ slight Sickle Cells Ovalocytes 1+ slight RBC Morph Comment Not Reportable PT 13.3 H (9.5-12.1) SECONDS INR 1.23 Puncture Site ABG pH (7.35-7.45) ABG pCO2 (35.0-45.0) mmHg ABG pO2 (80.0-100.0) mmHg ABG HCO3 (22.0-26.0) meq/L ABG O2 Saturation (96.0-97.0) % ABG Base Excess (-2-2.0) A-a Gradient mmHg O2 Delivery Device Oxygen Flow Rate Sodium 133 L (136-145) mEq/L Potassium 5.4 H (3.5-5.1) mEq/L Chloride 97 L (98-107) mEq/L Carbon Dioxide 13 L (21-32) mEq/L Anion Gap 28.4 H (5-15) BUN 50 H (7-18) mg/dL Creatinine 2.5 H (0.7-1.3) mg/dL Est Cr Clr Drug Dosing TNP Estimated GFR (MDRD) 25 (>60) mL/min BUN/Creatinine Ratio 20.0 H (14-18) Glucose 241 H (83-115) mg/dL Lactic Acid (0.4-2.0) mmol/L Calcium 8.6 (8.5-10.1) mg/dL Magnesium 2.4 (1.8-2.4) mg/dl Total Bilirubin 1.1 H (0.2-1.0) mg/dL AST 61 H (15-37) U/L ALT 62 (16-63) U/L Alkaline Phosphatase 57 (46-116) U/L CK-MB (CK-2) 13.1 H (0-3.6) ng/ml Troponin I 3.961 H* (0.00-0.056) ng/mL NT-Pro-B Natriuret Pep (0-450) pg/mL Total Protein 7.5 (6.4-8.2) g/dl Albumin 3.5 (3.4-5.0) g/dl Globulin 4.0 gm/dL Albumin/Globulin Ratio 0.9 L (1-2) Lipase 107 (73-393) U/L 08/18/18 08/19/18 08/19/18 Range/Units 23:55 02:35 02:40 WBC (4.23-9.07) K/mm3 RBC (4.63-6.08) M/mm3 Hgb (13.7-17.5) gm/L Hct (40.1-51.0) % MCV (79.0-92.2) fl MCH (25.7-32.2) pg MCHC (32.2-35.5) g/dl RDW Std Deviation (35.1-43.9) fL Plt Count (163-337) K/mm3 MPV (9.4-12.3) fl Neutrophils % (Manual) (40-60) % Band Neutrophils % (0-10) % Lymphocytes % (Manual) (20-40) % Atypical Lymphs % % Monocytes % (Manual) (2-10) % Eosinophils % (Manual) (0.8-7.0) % Basophils % (Manual) (0.2-1.2) Toxic Granulation Platelet Estimate Plt Morphology Comment Polychromasia Poikilocytosis Anisocytosis Microcytosis Macrocytosis Sickle Cells Ovalocytes RBC Morph Comment PT (9.5-12.1) SECONDS INR Puncture Site Rt radial ABG pH 7.30 L (7.35-7.45) ABG pCO2 22.5 L (35.0-45.0) mmHg ABG pO2 61.0 L (80.0-100.0) mmHg ABG HCO3 10.7 L (22.0-26.0) meq/L ABG O2 Saturation 82.1 L (96.0-97.0) % ABG Base Excess -14.2 L (-2-2.0) A-a Gradient 116 mmHg O2 Delivery Device Nasal cannula Oxygen Flow Rate 3.0 Sodium (136-145) mEq/L Potassium (3.5-5.1) mEq/L Chloride (98-107) mEq/L Carbon Dioxide (21-32) mEq/L Anion Gap (5-15) BUN (7-18) mg/dL Creatinine (0.7-1.3) mg/dL Est Cr Clr Drug Dosing Estimated GFR (MDRD) (>60) mL/min BUN/Creatinine Ratio (14-18) Glucose (83-115) mg/dL Lactic Acid 7.8 H (0.4-2.0) mmol/L Calcium (8.5-10.1) mg/dL Magnesium (1.8-2.4) mg/dl Total Bilirubin (0.2-1.0) mg/dL AST (15-37) U/L ALT (16-63) U/L Alkaline Phosphatase (46-116) U/L CK-MB (CK-2) (0-3.6) ng/ml Troponin I (0.00-0.056) ng/mL NT-Pro-B Natriuret Pep > 23163 H (0-450) pg/mL Total Protein (6.4-8.2) g/dl Albumin (3.4-5.0) g/dl Globulin gm/dL Albumin/Globulin Ratio (1-2) Lipase (73-393) U/L Meds: Medications Discontinued Medications Generic Name Dose Route Start Last Admin Trade Name Freq PRN Reason Stop Dose Admin Acetaminophen 650 mg 08/19/18 01:03 08/19/18 01:07 Tylenol PO 08/19/18 01:04 650 mg NOW ONE Administration Furosemide 60 mg 08/18/18 23:47 08/18/18 23:55 Lasix IVPUSH 08/18/18 23:48 60 mg NOW ONE Administration Furosemide 80 mg 08/19/18 01:56 08/19/18 02:01 Lasix IVPUSH 08/19/18 01:57 80 mg NOW ONE Administration - Radiology Interpretation Free Text/Narrative:: 83-year-old male presents to the ED with severe dyspnea. Clinically he is in acute congestive heart failure. He has chronic leukocytic leukemia and is been tried numerous came different chemotherapeutic agents over the last several months to lower his high white cell count which is been as high as 140,000. Today was 87.5 in the clinic. Today he received immunoglobulin intravenously. His Lasix dosage has been increased as of late Wednesday 40 in the morning and 20 in the afternoon. In the past his ejection fraction is dropped down to below 20 % on chemotherapeutic agents precipitating severe heart failure. Clinically he is in significant congestive failure at this time. Plan Lasix 60 mg IV. Sats are 97% on room air but is working very hard to get that he is a pink Panter. Plan 1 view chest x-ray routine labs including cardiac markers and BNP and magnesium to be obtained. - Re-Assessments/Exams Free Text/Narrative Re-Assessment/Exam: 08/19/18 01:19 White count is 97.87 patient does have chronic leukocytic leukemia. Differential reveals 91% lymphocytes. Hemoglobin is low at 9.2 with hematocrit of 31.0. MCV is elevated at 103. Pill count 147,000. ETT is 13.3 with an INR 1.23. Sodium 133 potassium elevated at 5.4. Chloride is 97 with a bicarbonate of 13. And a gap is 28.4. BUN is 50 with a creatinine of 2.5. GFR is 25 i.e. stage IV chronic kidney disease. Glucose is 241. Calcium 8.6. Magnesium 2.4. Total bilirubin 1.1. AST is 61 with an ALT of 62. Alk phosphatase normal at 57. CK-MB fraction is 13.1 with a troponin I of 3.961 strongly suggestive of recent myocardial infarction. BNP is greater than 35, 000. Serum lipase is 107. 08/19/18 01:59 L Tim discussion with the daughter and the patient. Initially the patient was sure that he wanted to pursue cardiology consultation and management but they indicated there is a strong chance that he could from current heart failure. After discussion between him and his daughter he is elected to be transferred to [place] for cardiology assessment and management. Again he appears to be entering into terminal congestive heart failure. 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 He has never had an angiogram. He has been off chemotherapy since the end of May. Was due to start chemotherapy again tomorrow. Patient and daughter request that he be transferred to [facility]. She has seen cardiology and pulmonology at [facility] but [facility] is currently on diversion. Will therefore speak with 1 call at [facility] 08/19/18 02:25: I did speak with --front office assistant on-call at [facility] in [place]. They do have a bed. Dr. Kandy oakes asked that I obtained a ABG and lactic acid level prior to accepting care. The lactic acid is therefore in progress. 08/19/18 03:02 ABGs reveal a pH of 7.30. PCO2 is 22.5 PO2 is 61. Lactic acid level is elevated at 7.8. 08/19/18 03:30: Spoke with Dr. Sky oncologist and he does not believe that patient would have hyperviscosity syndrome if there is no blast cells associated with his chronic lymphocytic leukemia. Discussion then held with Dr. Hills and he has accepted the patient in transfer to the intensive care unit at [facility]. Ground ambulance transport will be arranged. Departure - Departure Time of Disposition: 03:38 Disposition: DC/Tfer to [facility] 02 Condition: Critical Clinical Impression: Anuria, CLL (chronic lymphocytic leukemia), Chronic renal insufficiency, stage IV (severe) Acute myocardial infarction Qualifiers: Myocardial infarction type: non-ST elevation myocardial infarction Qualified Code(s): I21.4 - Non-ST elevation (NSTEMI) myocardial infarction Congestive heart failure Qualifiers: Heart failure type: unspecified Heart failure chronicity: acute on chronic Qualified Code(s): I50.9 - Heart failure, unspecified Anemia Qualifiers: Anemia type: unspecified type Qualified Code(s): D64.9 - Anemia, unspecified - Discharge Information *PRESCRIPTION DRUG MONITORING PROGRAM REVIEWED*: Not Applicable *COPY OF PRESCRIPTION DRUG MONITORING REPORT IN PATIENT TERRANCE: Not Applicable Referrals: Archie Peoples MD [Primary Care Provider] - Forms: ED Department Discharge - My Orders Last 24 Hours: My Active Orders 08/18/18 23:48 EKG Documentation Completion [RC] STAT Chest 1V Frontal [CR] Stat 08/19/18 01:56 Oxygen Therapy [RC] ASDIRECTED - Assessment/Plan Last 24 Hours: My Active Orders 08/18/18 23:48 EKG Documentation Completion [RC] STAT Chest 1V Frontal [CR] Stat 08/19/18 01:56 Oxygen Therapy [RC] ASDIRECTED
[2018-08-18] MEDS ORDERED: Furosemide 40 MG/4 ML VIAL IVPUSH ONE (23:47)
[2018-08-19] MEDS ORDERED: Acetaminophen 325 MG Tab PO ONE (01:03)
[2018-08-19] MEDS ORDERED: Furosemide 40 MG/4 ML VIAL IVPUSH ONE (01:56)
--- NOTE | 2018-08-19 09:28 | CR ---
Chest: Portable view of the chest was obtained. Comparison: Prior chest x-ray of 06/20/18. Heart is enlarged. Right-sided infusion port is seen. Pacemaker is noted. Minimal scarring is seen within the left base. Lungs show no acute parenchymal change. Bony structures are grossly intact. Impression: 1. Mild cardiomegaly and other incidental findings. Nothing acute is appreciated on portable chest x-ray. Diagnostic code #2
== END 2018-08-19 04:06 ==
LOC: JD.ED 23:29
DX: I21.4 Non-ST elevation (NSTEMI) myocardial infarction (principal); C91.10 Chronic lymphocytic leukemia of B-cell type not having achieved remission; I13.0 Hypertensive heart and chronic kidney disease with heart failure and stage 1 through stage 4 chronic kidney disease, or unspecified chronic kidney disease; N18.4 Chronic kidney disease, stage 4 (severe); I50.9 Heart failure, unspecified; E03.9 Hypothyroidism, unspecified; E66.9 Obesity, unspecified; D63.1 Anemia in chronic kidney disease; R34 Anuria and oliguria; R06.00 Dyspnea, unspecified; Z79.899 Other long term (current) drug therapy
CPT/HCPCS: 36415; 36600; 71045; 80053; 82553; 82803; 83605; 83690; 83735; 83880; 84484; 85007; 85027; 85610; 93005; 96374; 96376; 99285; A9270; J1940; 93010